=== PATIENT | male | born 1970 | race Caucasian/White ===

== ENCOUNTER 2017-11-03 14:45 | Observation (INO) | payer BC ==
--- NOTE | 2017-11-03 15:30 | RAD REPORT ---
EXAM DESCRIPTION: CT - Ct Stroke Brain Wo Cont - 11/03/2017 3:23 pm CLINICAL HISTORY: CVA/TIA COMPARISON: None. TECHNIQUE: All CT scans are performed using dose optimization technique as appropriate and may inclu de automated exposure control or mA/KV adjustment according to patient size. FINDINGS: No intracranial hemorrhage, hydrocephalus or extra-axial fluid collection.No areas of brai n edema or evidence of midline shift. The paranasal sinuses and mastoids are essentially clear. The calvarium is intact. IMPRESSION: No acute intracranial abnormality. The findings were discussed with ER physician Dr. Oropeza on 11/03/2017 at 3:26 p.m. by telephone.
[2017-11-03 15:36] LABS: Absolute Lymphocytes (CBC) 2.2 K/uL (0.7-4.9); Absolute Monocytes 0.7 K/uL (0.1-1.3); Absolute Neutrophil 3.9 K/uL (1.8-8.0); Basophils % 1.3 % (0-1.3); Eosinophils % 3.6 % (0-4.4); Lymphocytes % 30.8 % (15.3-44.8); MCH 31.9 pg (27.0-35.0); MCV 91.8 fL (80-100); MPV 8.8 fL (7.6-11.3); Monocytes % 9.9 % (3.3-12.3); RBC Red Blood Cell Count 5.12 M/uL (4.33-5.43)
--- NOTE | 2017-11-03 15:36 | RAD REPORT ---
EXAM DESCRIPTION: RAD - Chest Single View - 11/03/2017 3:30 pm CLINICAL HISTORY: CVA symptomology. COMPARISON: 11/26/2014 FINDINGS: Portable technique limits examination quality. The lungs are grossly clear. The heart is normal in size. No displaced fractures. IMPRESSION: No acute intrathoracic process suspected.
[2017-11-03 15:47] LABS: Potassium 3.8 mEq/L (3.6-5.0)
[2017-11-03 16:25] LABS: Protime INR 0.87
[2017-11-03] MEDS ORDERED: ASPIRIN 81 MG CHEWABLE TABLET ONE (16:43)
[2017-11-03] MEDS ORDERED: HYDROCODONE/APAP 5/325 MG TAB ONE ×2 (16:43→18:36)
[2017-11-03] MEDS ORDERED: NA CHLORIDE 0.9% 500 ML ONE (17:20)
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
[2017-11-03] MEDS ORDERED: ALBUTEROL 2.5 MG/3 ML NEB SOL NEB PRN (17:57)
[2017-11-03] MEDS ORDERED: HYDRALAZINE HCL 20 MG/ML VIAL IV PRN (17:57)
[2017-11-03] MEDS ORDERED: IPRATROPIUM BROM 0.5MG/2.5ML NEB PRN (17:57)
[2017-11-03] MEDS ORDERED: ONDANSETRON 4 MG/2 ML VIAL IV PRN (17:57)
[2017-11-03] MEDS ORDERED: ACETAMINOPHEN 500 MG TAB PO PRN (17:57)
[2017-11-03 18:03] LABS: Barbiturates NEGATIVE (NEGATIVE); Benzodiazepines NEGATIVE (NEGATIVE); Cocaine NEGATIVE (NEGATIVE); Opiates NEGATIVE (NEGATIVE); Phencyclidine NEGATIVE (NEGATIVE); THC Cannibis NEGATIVE (NEGATIVE)
[2017-11-03 18:05] LABS: METHAMPHETAM POSITIVE (NEGATIVE)
[2017-11-03 18:12] LABS: Urine Blood NEGATIVE (NEG); Urine Glucose NEGATIVE (NEG); Urine Protein NEGATIVE (NEG); Urine Specific Gravity >1.030 (1.005-1.030); Urine pH 5.5 (5.0-7.0)
[2017-11-03] MEDS: ATORVASTATIN 80 MG TAB PO SCH ×2 (19:00→22:12)
[2017-11-03] MEDS ORDERED: LORazepam 2 MG/ML VIAL ONE (19:19)
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
--- NOTE | 2017-11-03 20:34 | RAD REPORT ---
EXAM DESCRIPTION: MRI - Brain W/Wo Cont - 11/03/2017 8:17 pm CLINICAL HISTORY: CVA COMPARISON: CT head 11/03/2017 TECHNIQUE: Multi-sequence, multiplanar MR imaging of the brain was performed with contrast. FINDINGS: No acute hemorrhage, hydrocephalus or extra-axial collections seen. Small area of elevated diffusion-weighted signal is seen in the right basal ganglia along the course of the posterior limb of the right internal capsule measuring 9 mm. Additional 9-10 mm area of increa sed diffusion-weighted signal is seen in the right periventricular white matter. These areas demonstr ate reduced ADC signal compatible with acute CVA. No hemorrhagic component is present. No pathologic enhancement is seen following contrast administration. The midline structures are normally formed. No post-contrast enhancement worrisome for tumor or infec tion. IMPRESSION: Nonhemorrhagic small acute right-sided CVAs as detailed. Findings were discussed with Dr. Alcantara at 8:30 p.m. on 11/03/2017 by telephone.
--- NOTE | 2017-11-03 20:36 | RAD REPORT ---
EXAM DESCRIPTION: MRI - MRA Head Wo Cont - 11/03/2017 8:17 pm CLINICAL HISTORY: CVA COMPARISON: Brain MR same date FINDINGS: 3D noncontrast [id number] MRA of the robinson of [place] was performed. No aneurysm, high-grade stenosis or vascular malformation is seen. Atherosclerotic narrowing in both carotid siphons is present. Mildly right-sided dominant vertebral artery. IMPRESSION: No significant flow abnormality the robinson of [place] is identified.
[2017-11-03] MEDS ORDERED: LORazepam 2 MG/ML VIAL IV PRN (21:07)
[2017-11-03 21:32] VITALS: O2SAT 100
[2017-11-03 21:53] VITALS: BMI 46.4
[2017-11-03] MEDS: LISINOPRIL 20 MG TAB PO SCH (22:09)
[2017-11-03] MEDS: ENOXAPARIN 40 MG/0.4 ML SQ SCH (22:10)
[2017-11-03] MEDS: NA CHLORIDE 0.9% 1,000 ML IV SCH (22:52)
[2017-11-03] MEDS ORDERED: TRAMADOL HCL 50 MG TAB PO ONE (23:40)
[2017-11-04 02:02] LABS: CKMB Creatine Kinase MB 2.4 ng/ml (0.3-4.0)
[2017-11-04] MEDS: NA CHLORIDE 0.9% 1,000 ML IV SCH ×3 (04:00→14:00)
[2017-11-04 04:46] LABS: Absolute Lymphocytes (CBC) 2.4 K/uL (0.7-4.9); Absolute Monocytes 0.6 K/uL (0.1-1.3); Basophils % 0.9 % (0-1.3); Eosinophils % 4.1 % (0-4.4); Hematocrit 45.2 % (39.6-49.0); Lymphocytes % 38.6 % (15.3-44.8); MCH 31.9 pg (27.0-35.0); MCV 92.7 fL (80-100); Monocytes % 9.2 % (3.3-12.3); RBC Red Blood Cell Count 4.87 M/uL (4.33-5.43)
[2017-11-04 05:35] LABS: BUN Blood Urea Nitrogen 18 mg/dL (6-20); Bicarbonate 27 mEq/L (21-31); Glucose Level 100 mg/dL (65-120); HDL Cholesterol 52 mg/dL (27-67); LDL Cholesterol, Calculated 178 (<130); Potassium 4.2 mEq/L (3.6-5.0); Sodium Level 139 mEq/L (135-145); Thyroid Stimulating Hormone 1.55 uIU/mL (0.34-5.60)
--- NOTE | 2017-11-04 06:23 | EKG ---
Test Date: 2017-11-03 Test Time: 15:18:51 Pediatric Sports Medicine Specialist: JAZMÍN MEASUREMENT RESULTS: Intervals: Rate: 77 MA: 188 QRSD: 76 QT: 378 QTc: 427 Woody: P: -3 MA: 188 QRS: -2 T: 95 INTERPRETIVE STATEMENTS: Normal sinus rhythm Minimal voltage criteria for LVH, may be normal variant T wave abnormality, consider lateral ischemia Abnormal ECG Compared to ECG 11/26/2014 07:29:32 Left ventricular hypertrophy now present T-wave abnormality now present Possible ischemia now present Sinus bradycardia no longer present Electronically Signed On 11-04-17 06:22:29 CDT by Weston Morrissey
[2017-11-04] MEDS ORDERED: PANTOPRAZOLE 40MG TABLET PO SCH (07:30)
[2017-11-04] MEDS ORDERED: FOLIC ACID 1 MG TABLET PO SCH (09:00)
[2017-11-04] MEDS ORDERED: NICOTINE 21 MG/PAT TD SCH (09:00)
[2017-11-04] MEDS ORDERED: THIAMINE HCL 100 MG TABLET PO SCH (09:00)
[2017-11-04] MEDS: ENOXAPARIN 40 MG/0.4 ML SQ SCH (09:32)
[2017-11-04] MEDS: LISINOPRIL 20 MG TAB PO SCH (09:34)
[2017-11-04 09:43] LABS: CKMB Creatine Kinase MB 2.2 ng/ml (0.3-4.0)
--- NOTE | 2017-11-04 10:53 | RAD REPORT ---
EXAM DESCRIPTION: [facility] - CP - 11/04/2017 10:42 am CLINICAL HISTORY: CVA COMPARISON: MR brain 11/03/2017 TECHNIQUE: Real-time sonographic evaluation of both carotid systems was performed. Doppler interroga tion was performed with waveform tracing bilaterally. FINDINGS: Normal high resistance waveforms are noted in both external carotid arteries. The common c arotid arteries and internal carotid arteries show normal low resistance waveforms. Mild bilateral intimal thickening is noted. Peak systolic and end diastolic velocity values and the I CA/CCA ratios are in the non-hemodynamically significant range. Antegrade flow seen in both vertebral arteries. IMPRESSION: Bilateral intimal thickening is noted. No evidence of a hemodynamically significant stenosis.
--- NOTE | 2017-11-04 11:14 | P.PN ---
Subjective Date of Service: 11/04/17 Primary Care Provider: Dr. Honeycutt Chief Complaint: Left upper and lower extremity weakness Subjective: No new changes, Ambulating (Pt resists nicotine patch and wants to ambulate down to smoke. Discussed dangers of that and he consents to stay on the floor and will accept nicotine patch) Review of Systems Neurological: Numbness (left arm and leg, no worse, no significant improvement, denies weakness) Physical Examination - Vital Signs Temperature: 98.0 F Blood Pressure: 150/92 Pulse: 76 Respirations: 18 Pulse Ox (%): 98 - Physical Exam General: Alert, In no apparent distress, Oriented x3 HEENT: Atraumatic, Normocephalic Neck: Supple, 2+ carotid pulse no bruit Respiratory: Clear to auscultation bilaterally, Normal air movement Cardiovascular: No edema, Normal pulses Capillary refill: <2 Seconds Gastrointestinal: Normal bowel sounds, Soft and benign, Non-distended Musculoskeletal: No clubbing Integumentary: No rashes, Other (facial erythema, + ETOH daily) Neurological: Normal gait, Normal speech, Normal strength at 5/5 x4 extr, Abnormal sensation (left upper and lower extremities) Lymphatics: No axilla or inguinal lymphadenopathy External genitalia: Deferred Rectal: Deferred - Studies Laboratory Data (last 24 hrs) 11/03/17 15:10: PT 10.2, INR 0.87, APTT 28.3 11/03/17 15:10: WBC 7.2, Hgb 16.3, Hct 47.0, Plt Count 244 11/03/17 15:10: Sodium 138, Potassium 3.8, BUN 20, Creatinine 0.99, Glucose 101 11/03/17 15:10: B-Natriuretic Peptide 45 Assessment & Plan - Problems (Diagnosis) (1) Left-sided weakness Onset Date: 11/04/17 Current Visit: Yes Status: Acute Plan: Carotid doppler studies in progress. Will see Neurology today (2) Obstructive sleep apnea Onset Date: 11/04/17 Current Visit: Yes Status: Chronic Plan: Sleep study (3) Tobacco abuse Onset Date: 11/04/17 Current Visit: Yes Status: Chronic Plan: Nicoderm patch, smoking cessation information (4) Hyperlipidemia Onset Date: 10/03/14 Current Visit: No Status: Chronic Plan: consider statins Qualifiers: Hyperlipidemia type: unspecified Qualified Code(s): E78.5 - Hyperlipidemia , unspecified Plan to discharge in: 48 Hours - Code Status/Comfort Care Code Status Assessed: Yes Code Status: Full Code
--- NOTE | 2017-11-04 12:30 | ECHO ---
HEIGHT: 5 ft 8 in WEIGHT: 305 lb 3.2 oz DATE OF STUDY: 11/04/[address]: Devan Alcantara DO 2-DIMENSIONAL: YES M.MODE: YES DOPPLER: YES COLOR FLOW: YES TDS: PORTABLE: DEFINITY: BUBBLE STUDY: DIAGNOSIS: EVALUATE FOR CEREBRAL VASULAR ACCIDENT CARDIAC HISTORY: CATHERIZATION: NO SURGERY: NO PROSTHETIC VALVE: NO PACEMAKER: NO MEASUREMENTS (cm) DIASTOLIC (NORMALS) SYSTOLIC (NORMALS) IVSd 1.5 (0.6-1.2) LA Diam 3.8 (1.9-4.0) LVEF 73% LVIDd 3.5 (3.5-5.7) LVIDs 2.1 (2.0-3.5) %FS 41% LVPWd 1.2 (0.6-1.2) Ao Diam 3.5 (2.0-3.7) 2 DIMENSIONAL ASSESSMENT: RIGHT ATRIUM: NORMAL LEFT ATRIUM: NORMAL RIGHT VENTRICLE: NORMAL LEFT VENTRICLE: NORMAL TRICUSPID VALVE: NORMAL MITRAL VALVE: NORMAL PULMONIC VALVE: NORMAL AORTIC VALVE: NORMAL PERICARDIAL EFFUSION: NONE AORTIC ROOT: NORMAL LEFT VENTRICULAR WALL MOTION: NORMAL DOPPLER/COLOR FLOW: NORMAL COMMENTS: NORMAL TWO DIMENSIONAL ECHOCARDIOGRAM WITH DOPPLER. TECHNOLOGIST: YUSUF MEADE
--- NOTE | 2017-11-04 14:42 | P.DS ---
Admission Date: 11/03/17 Discharge Date: 11/04/17 Primary Care Provider: Dr. Honeycutt Disposition: ROUTINE DISCHARGE Discharge Condition: GOOD Reason for Admission: Left upper and lower extremity weakness - Problems (1) Left-sided weakness Onset Date: 11/04/17 Current Visit: Yes Status: Acute (2) Obstructive sleep apnea Onset Date: 11/04/17 Current Visit: No Status: Chronic (3) Tobacco abuse Onset Date: 11/04/17 Current Visit: Yes Status: Chronic (4) Hyperlipidemia Onset Date: 10/03/14 Current Visit: Yes Status: Chronic Qualifiers: Hyperlipidemia type: unspecified Qualified Code(s): E78.5 - Hyperlipidemia , unspecified Vital Signs/Physical Exam: Temp Pulse Resp BP Pulse Ox 97.2 F 65 18 130/90 97 11/04/17 12:00 11/04/17 12:00 11/04/17 12:00 11/04/17 12:00 11/04/17 12:00 General: Alert, In no apparent distress, Oriented x3 HEENT: Atraumatic Neck: Supple, 2+ carotid pulse no bruit Respiratory: Clear to auscultation bilaterally, Normal air movement Cardiovascular: No edema, Normal pulses Capillary refill: <2 Seconds Gastrointestinal: Normal bowel sounds, Soft and benign Musculoskeletal: No clubbing Integumentary: No rashes, No breakdown, Other (erythematous face) Neurological: Normal gait, Normal speech, Normal strength at 5/5 x4 extr, Other (left hand and lower ext numbness), Abnormal sensation Lymphatics: No axilla or inguinal lymphadenopathy External genitalia: Deferred Rectal: Deferred Laboratory Data at Discharge: WBC 6.3 K/uL (4.3-10.9) 11/04/17 03:38 Hgb 15.6 g/dL (13.6-17.9) 11/04/17 03:38 Hct 45.2 % (39.6-49.0) 11/04/17 03:38 Plt Count 227 K/uL (152-406) 11/04/17 03:38 PT 10.2 SECONDS (9.5-12.5) 11/03/17 15:10 INR 0.87 11/03/17 15:10 APTT 28.3 SECONDS (24.3-36.9) 11/03/17 15:10 Sodium 139 mEq/L (135-145) 11/04/17 03:38 Potassium 4.2 mEq/L (3.6-5.0) 11/04/17 03:38 BUN 18 mg/dL (6-20) 11/04/17 03:38 Creatinine 0.89 mg/dL (0.61-1.24) 11/04/17 03:38 Glucose 100 mg/dL (65-120) 11/04/17 03:38 Magnesium 2.0 mg/dL (1.8-2.5) 11/04/17 03:38 Troponin I < 0.03 ng/mL (<0.03) 11/04/17 09:08 B-Natriuretic Peptide 45 pg/ml (<=100) 11/03/17 15:10 Triglycerides 234 mg/dL (35-160) H 11/04/17 03:38 Cholesterol 277 mg/dL (<200) H 11/04/17 03:38 HDL Cholesterol 52 mg/dL (27-67) 11/04/17 03:38 Cholesterol/HDL Ratio 5.33 11/04/17 03:38 Home Medications: Aspirin Chewable [Aspirin Chewable*] 81 mg PO DAILY #90 tab.chew 11/04/17 Atorvastatin Calcium [Lipitor] 40 mg PO BEDTIME #90 tab 11/04/17 Dextroamphetamine/Amphetamine [Dextroamp-Amphetamin 20 mg Tab] 20 tab PO BID Hydrocodone/Acetaminophen [Hydrocodone-Acetamin 7.5-325] 7.5 - 325 mg PO Q6HP PRN 11/04/17 Lisinopril 20 mg PO DAILY 11/04/17 New Medications: Aspirin Chewable [Aspirin Chewable*] 81 mg PO DAILY #90 tab.chew Atorvastatin Calcium [Lipitor] 40 mg PO BEDTIME #90 tab Diet: AHA Activity: Ad jennifer Followup: Blake Morgan MD [ASSOCIATE-ACTIVE - CAN ADMIT] - (Follow up in 1 month, call to schedule an appointment)
[2017-11-04 15:55] VITALS: BP 145/83; TEMP 98.5
[2017-11-04] MEDS ORDERED: ASPIRIN EC 81 MG TAB PO SCH (19:00)
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
== END 2017-11-04 15:55 | disposition home or self-care (01) ==
LOC: ER 14:45 → INTOOBSV 17:40 → ERHOLD 17:40 → 4TH 21:09
PROVIDERS: ADMIT Family Medicine; ATTEND Family Medicine
DX: M62.81 Muscle weakness (generalized) (principal); R20.0 Anesthesia of skin; G47.33 Obstructive sleep apnea (adult) (pediatric); I10 Essential (primary) hypertension; E78.5 Hyperlipidemia, unspecified; F17.210 Nicotine dependence, cigarettes, uncomplicated; F10.10 Alcohol abuse, uncomplicated; F15.10 Other stimulant abuse, uncomplicated
CPT/HCPCS: 36415; 70450; 70544; 70553; 71045; 80048; 80061; 80307; 81003; 82550; 82553; 82962; 83735; 83880; 84439; 84443; 84484; 85025; 85610; 85730; 93005; 93306; 93880; 96361; 96374; 97163; 99285; A9577; G0378; J1650; J7030

== ENCOUNTER 2018-09-27 19:01 | Observation (INO) | payer BC ==
--- OUTSIDE RECORDS SUMMARY | 2018-09-27 19:03 | XMS REPORT ---
:1970 [facility] Address [address] [place] [address] Dr. Burns. [address] [place] [id number] Care Team Providers Name Role Phone Unavailable Unavailable Unavailable Problems This patient has no known problems. Allergies, Adverse Reactions, Alerts This patient has no known allergies or adverse reactions. Medications This patient has no known medications.
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
[2018-09-27] MEDS ORDERED: MORPHINE 4 MG/ML SYR ONE (20:25)
[2018-09-27] MEDS ORDERED: NITROGLYCERIN 0.4 MG/TAB SL ONE (20:25)
[2018-09-27] MEDS ORDERED: ASPIRIN EC 81 MG TAB PO ONE (20:25)
[2018-09-27] MEDS ORDERED: ONDANSETRON 4 MG/2 ML VIAL ONE (20:25)
[2018-09-27 20:28] LABS: Absolute Monocytes 0.7 K/uL (0.1-1.3); Absolute Neutrophil 3.7 K/uL (1.8-8.0); Basophils % 1.3 % (0-1.3); Eosinophils % 4.8 % (0-4.4); Hematocrit 42.5 % (39.6-49.0); Lymphocytes % 38.3 % (15.3-44.8); MPV 8.3 fL (7.6-11.3); Monocytes % 8.9 % (3.3-12.3); RBC Red Blood Cell Count 4.62 M/uL (4.33-5.43)
--- NOTE | 2018-09-27 20:36 | RAD REPORT ---
EXAM DESCRIPTION: RAD - Chest Single View - 09/27/2018 8:17 pm CLINICAL HISTORY: Chest pain COMPARISON: November 03, 2017 TECHNIQUE: AP portable chest image was obtained 2014 hour . FINDINGS: No acute lung parenchymal process seen. Lung markings are similar to comparison, accentuat ed by a slightly shallow inspiration. Heart and vasculature are normal. No measurable pleural effusio n and no pneumothorax. No acute bony abnormality seen. No acute aortic findings suspected. IMPRESSION: No acute cardiopulmonary process. No significant interval change.
[2018-09-27 20:52] LABS: ALT/SGPT 58 U/L (12-78); AST/SGOT 32 U/L (15-37); Albumin 3.8 g/dL (3.4-5.0); Alkaline Phosphatase 82 U/L (45-117); BUN Blood Urea Nitrogen 18 mg/dL (7-18); Bicarbonate 27 mmol/L (21-32); Bilirubin Direct 0.1 mg/dL (0-0.2); Bilirubin Total 0.6 mg/dL (0.2-1.0); Glucose Level 104 mg/dL (74-106); Magnesium 2.2 mg/dL (1.8-2.4); NT PRO-BNP 75 pg/mL (<125); Potassium 3.7 mmol/L (3.5-5.1); Protein, Total 7.2 g/dL (6.4-8.2); Sodium Level 140 mmol/L (136-145); Troponin (Emerg Dept Use Only) < 0.02 ng/mL (0.0-0.045)
[2018-09-27] MEDS ORDERED: ALPRAZOLAM 0.25 MG TABLET PO PRN (20:52)
[2018-09-27] MEDS ORDERED: ACETAMINOPHEN 500 MG TAB PO PRN (20:52)
[2018-09-27] MEDS ORDERED: CLOPIDOGREL 75 MG TABLET PO ONE (20:56)
[2018-09-27 20:58] LABS: Protime INR 0.85
[2018-09-27] MEDS ORDERED: ENOXAPARIN 100 MG/ML SYR SQ SCH (21:00)
[2018-09-27] MEDS ORDERED: ATORVASTATIN 80 MG TAB PO SCH (21:00)
[2018-09-27 22:51] LABS: Urine Blood NEGATIVE (NEG); Urine Glucose NEGATIVE (NEG); Urine Protein NEGATIVE (NEG); Urine pH 6.5 (5.0-7.0)
[2018-09-27 22:55] LABS: Barbiturates NEGATIVE (NEGATIVE); Benzodiazepines NEGATIVE (NEGATIVE); Cocaine NEGATIVE (NEGATIVE); METHAMPHETAM NEGATIVE (NEGATIVE); Methadone NEGATIVE (NEGATIVE); Opiates POSITIVE (NEGATIVE); Phencyclidine NEGATIVE (NEGATIVE); THC Cannibis NEGATIVE (NEGATIVE)
[2018-09-27] MEDS ORDERED: BENZONATATE 100 MG CAP PO PRN (23:11)
[2018-09-27] MEDS: METOPROLOL TAR 50 MG TAB PO SCH (23:14)
[2018-09-27 23:58] VITALS: BMI 42.4
[2018-09-28] MEDS ORDERED: GUAIFENESIN/CODEINE 5ML UCUP PO PRN (00:13)
[2018-09-28] MEDS: ENOXAPARIN 100 MG/ML SYR SQ SCH ×2 (00:34→08:03)
[2018-09-28] MEDS: MORPHINE 4 MG/ML SYR IV PRN ×2 (00:35→05:11)
[2018-09-28 05:10] LABS: Troponin I < 0.02 ng/mL (0.0-0.045)
[2018-09-28 05:16] LABS: Urine Appearance CLEAR; Urine Bilirubin NEGATIVE (NEG); Urine Blood NEGATIVE (NEG); Urine Color YELLOW; Urine Glucose NEGATIVE (NEG); Urine Protein NEGATIVE (NEG); Urine Specific Gravity 1.015 (1.005-1.030); Urine Urobilinogen 0.2 mg/dL (0.2-1.0)
[2018-09-28 05:34] LABS: Urine Microscopic Reflex NO UMIC
[2018-09-28 05:56] LABS: HDL Cholesterol 57 mg/dL (40-60); LDL Cholesterol, Calculated 113 (<130)
[2018-09-28] MEDS: METOPROLOL TAR 50 MG TAB PO SCH ×2 (08:04→15:58)
[2018-09-28] MEDS ORDERED: REGADENOSON 0.4 MG/5 ML SYR IV ONE (08:31)
[2018-09-28] MEDS ORDERED: CLOPIDOGREL 75 MG TABLET PO SCH (09:00)
[2018-09-28] MEDS ORDERED: ASPIRIN EC 81 MG TAB PO SCH (09:00)
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
--- NOTE | 2018-09-28 14:31 | RAD REPORT ---
EXAM DESCRIPTION: NM - Rest Stress Cardiac Imaging - 09/28/2018 2:24 pm CLINICAL HISTORY: Chest pain COMPARISON: September 2014 TECHNIQUE: The patient was administered approximately 10 mCi of Tc 99m Sestamibi prior to resting SP ECT imaging of the heart. The patient was then administered approximately 30 mCi of Tc 99m Sestamibi following exercise or pharmacologic stress. Multiplanar SPECT images were reviewed. FINDINGS: The end diastolic volume is 180 ml, the end systolic volume is 102 ml, and the ejection fr action is 43 %. Volumes and ejection fraction are not substantially different from the comparison. No stress-induced ischemic changes identifiable. No new areas of scarring from the 2015 study. IMPRESSION: No stress-induced ischemic change. End-diastolic volume is enlarged at 180 milliliters with 43% ejection fraction. These values are not significantly different from 2015. Overall, exam is not substantially different from 2015 comparison.
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
[2018-09-28 15:57] VITALS: O2SAT 95
[2018-09-28 16:03] VITALS: TEMP 98
--- NOTE | 2018-09-28 18:27 | EKG ---
Test Date: 2018-09-27 Test Time: 19:27:13 Service Dog Trainer: DIANA MEASUREMENT RESULTS: Intervals: Rate: 70 WA: 192 QRSD: 80 QT: 382 QTc: 412 [place]: P: 9 WA: 192 QRS: 2 T: 103 INTERPRETIVE STATEMENTS: Sinus rhythm with occasional premature ventricular complexes Nonspecific T wave abnormality Abnormal ECG Compared to ECG 11/03/2017 15:18:51 Ventricular premature complex(es) now present Left ventricular hypertrophy no longer present Possible ischemia no longer present T-wave abnormality still present Electronically Signed On 09-28-18 18:24:03 CDT by Kennedy Almeida
--- NOTE | 2018-09-28 19:05 | CON ---
Date of Consultation: 09/28/[address] patient admitted by Dr. Peoples's service on 09/27/2018. I saw the patient on 09/28/2018. Reason For Consultation: Chest pain. History Of Present Illness: Mr. Ho is a 48-year-old white male, has no significant past cardiac history. He does have a history of hypertension and dyslipidemia. Over the last few days has been having episodes of dizziness, shakiness, mid epigastric chest pain, nonradiating and not related to f ood, body position, time of the day. Under significant amount of stress lately. He denied PND, orth opnea, pedal edema, palpitations, or syncope. Allergies: HE IS ALLERGIC TO MULTIPLE MYCIN. Past Medical History: Includes hypertension and dyslipidemia. Review of Systems: Negative. Social History: Negative. Family History: Noncontributory. Medications: At home include aspirin, Lipitor, lisinopril, and metoprolol. Physical Examination: Vital Signs: He weighed 280 pounds. Blood pressure is 147/102. Vital signs were otherwise stable. He was in normal rhythm. HEENT: Negative. Neck: Supple, no bruit. Chest: Clear to auscultation and percussion. Cardiac: Revealed a regular rhythm and rate. No murmurs, gallops, or rubs. Abdomen: Benign. Extremities: Revealed no clubbing, cyanosis, or edema. Diagnostic Data: All normal. Impression And Plan: 1.Atypical chest pain, most likely gastric or esophageal in nature. 2.Dizziness and shakiness may be secondary to anxiety. 3.Hypertension poorly controlled. We can certainly increase the dose of metoprolol or lisinopril. 4.Dyslipidemia. An echocardiogram and stress test have been ordered already. We will see what thes e shows prior to making any final decisions. BERNARDINO/EDISON Voice ID: [id number] Report ID: [id number]
[2018-09-28 19:08] VITALS: BP 158/106
--- NOTE | 2018-09-29 08:45 | ECHO ---
HEIGHT: 5 ft 8 in WEIGHT: 279 lb 0 oz DATE OF STUDY: 09/28/[address]: Ileana Peoples MD 2-DIMENSIONAL: YES M.MODE: YES DOPPLER: YES COLOR FLOW: YES TDS: NO PORTABLE: NO DEFINITY: NO BUBBLE STUDY: NO DIAGNOSIS: CHEST PAIN, RULE OUT ACS CARDIAC HISTORY: CATHERIZATION: NO SURGERY: NO PROSTHETIC VALVE: NO PACEMAKER: NO MEASUREMENTS (cm) DIASTOLIC (NORMALS) SYSTOLIC (NORMALS) IVSd 1.2 (0.6-1.2) LA Diam 4.6 (1.9-4.0) LVEF 65% LVIDd 4.6 (3.5-5.7) LVIDs 3.0 (2.0-3.5) %FS 35% LVPWd 1.2 (0.6-1.2) Ao Diam 3.2 (2.0-3.7) 2 DIMENSIONAL ASSESSMENT: RIGHT ATRIUM: NORMAL LEFT ATRIUM: NORMAL RIGHT VENTRICLE: NORMAL LEFT VENTRICLE: NORMAL TRICUSPID VALVE: NORMAL MITRAL VALVE: NORMAL PULMONIC VALVE: NORMAL AORTIC VALVE: NORMAL PERICARDIAL EFFUSION: NONE AORTIC ROOT: NORMAL LEFT VENTRICULAR WALL MOTION: NORMAL DOPPLER/COLOR FLOW: NORMAL COMMENTS: MILD LEFT ATRIAL ENLARGEMENT. NORMAL WALL MOTION. NORMAL LEFT VENTRICULAR SIZE AND FUNCTION. NO EFFUSION. TECHNOLOGIST: Eleni GALVEZ
--- NOTE | 2018-09-29 08:52 | TREADPHA ---
DX: CHEST PAIN Date of Study: 09/28/2018 Ht: 5 8 Wt: 279 lb 0 oz Consulting Physician: VAISHNAVI MEDICATIONS: TYLENOL, XANAX, ASPIRIN, LIPITOR, PLAVIX, LOVENOX HISTORY: 48 YEAR OLD MALE WITH COMPLAINTS OF CHEST PAIN. MEDICAL HISTORY OF HYPERTENSION, ENLARGED HEART AND CURRENT SMOKER. PHYSICIAL EXAMINATION: RESTING B.P.: 165/116 RESTING H.R.: 55 RESTING EKG: SINUS RHYTHM, PREMATURE VENTRICULAR COMPLEXES. PROTOCOL: LEXISCAN EXERCISE TIME: 3:30 B.P. AT PEAK STRESS: 165/118 IMPRESSION: LEXISCAN INJECTED. CARDIOLITE INJECTED PER PROTOCOL. SEE NUCLEAR MEDICINE REPORT. NO SUPRAVENTRICULAR TACHYCARDIA. NO VENTRICULAR TACHYCARDIA. MULTIPLE PREMATURE VENTRICULAR COMPLEXES THOUGHOUT STRESS TEST. 6/10 CHEST PAIN ON PAIN SCALE THROUGHOUT PROCEDURE.
== END 2018-09-28 16:11 | disposition home or self-care (01) ==
LOC: ER 19:01 → ERHOLD 21:44 → 4TH 21:57
PROVIDERS: ADMIT Hospitalist; ATTEND Hospitalist
DX: R07.9 Chest pain, unspecified (principal); F10.10 Alcohol abuse, uncomplicated; E78.2 Mixed hyperlipidemia; I10 Essential (primary) hypertension; E66.9 Obesity, unspecified; Z68.41 Body mass index [BMI] 40.0-44.9, adult; G47.33 Obstructive sleep apnea (adult) (pediatric); F17.210 Nicotine dependence, cigarettes, uncomplicated; Z79.82 Long term (current) use of aspirin
CPT/HCPCS: 36415; 71045; 78452; 80048; 80061; 80076; 80307; 81003; 83735; 83880; 84484; 85025; 85379; 85610; 93005; 93017; 93306; 96374; 96375; 99285; A9500; G0378; J1650; J2405; J2785

== ENCOUNTER 2019-10-31 10:50 | Emergency (ER) | payer BC ==
[2019-10-31] MEDS ORDERED: PROMETHAZINE INJ 25 MG/ML AMP ONE (12:45)
[2019-10-31] MEDS ORDERED: MORPHINE 4 MG/ML SYR ONE (12:45)
[2019-10-31 13:03] LABS: Absolute Lymphocytes (CBC) 1.7 K/uL (0.7-4.9); Basophils % 1.5 % (0-1.3); Hematocrit 46.3 % (39.6-49.0); Lymphocytes % 23.8 % (15.3-44.8); MPV 8.7 fL (7.6-11.3); RBC Red Blood Cell Count 5.01 M/uL (4.33-5.43)
[2019-10-31 13:18] LABS: Protime INR 0.86
[2019-10-31 13:26] LABS: ALT/SGPT 60 U/L (12-78); AST/SGOT 35 U/L (15-37); Albumin 3.8 g/dL (3.4-5.0); Alkaline Phosphatase 72 U/L (45-117); BUN Blood Urea Nitrogen 16 mg/dL (7-18); Bicarbonate 25 mmol/L (21-32); Bilirubin Direct 0.2 mg/dL (0-0.2); Glucose Level 99 mg/dL (74-106); Magnesium 2.1 mg/dL (1.8-2.4); NT PRO-BNP 285 pg/mL (<125); Potassium 4.4 mmol/L (3.5-5.1); Protein, Total 7.8 g/dL (6.4-8.2); Sodium Level 137 mmol/L (136-145); Troponin (Emerg Dept Use Only) < 0.02 ng/mL (0.0-0.045)
--- NOTE | 2019-10-31 13:32 | RAD REPORT ---
EXAM DESCRIPTION: CT - Thorax Wo Con - 10/31/2019 1:03 pm CLINICAL HISTORY: Chest pain COMPARISON: 2014 TECHNIQUE: Computed axial tomography of the chest was obtained. Contrast was not requested. All CT scans are performed using dose optimization technique as appropriate and may include automated exposure control or mA/KV adjustment according to patient size. FINDINGS: The evaluation of mediastinum, vitaliy and vessels is limited secondary to lack of IV contras t administration. Nondisplaced fracture involves the third left anterolateral rib. Mildly displaced fracture involves t he fourth left anterolateral rib No pneumothorax. No pulmonary contusion Small left pleural effusion No mediastinal hematoma noted Small lucency within the left scapula with a sclerotic border probably benign Old right scapular fracture noted IMPRESSION: Fractures involving the third and fourth left ribs
--- OUTSIDE RECORDS SUMMARY | 2019-10-31 14:41 | XMS REPORT | Continuity of Care Document ---
:1970 Author Organization [facility] t Address [address] [place] [address] Care Team Providers Name Role Phone Yinka CLAUDIO Attending Clinician Doctor Unassigned, Name Attending Clinician Unavailable Problems This patient has no known problems. Allergies, Adverse Reactions, Alerts This patient has no known allergies or adverse reactions. Medications This patient has no known medications. Procedures This patient has no known procedures. Encounters Start End Encounter Admission Attending Care Care Encounter Source Date/Time Date/Time Type Type Clinicians Facility Department ID 2019-10-06 2019-10-06 Telemedici Yinka [facility] [id number] 07:08:57 07:23:57 ne Visit Nuno Wilson [id number] [place] [id number] Professio [phone] [address] 2019-09-12 2019-09-12 Refill Yinka [facility] [id number] 00:00:00 00:00:00 [facility] [id number] [place] [id number] Professio [phone] nal [facility] [address] 2019-09-06 2019-09-06 [facility] [id number] 00:00:00 00:00:00 [facility] [id number] [place] [id number] Professio [phone] [place] [address] [address] 2019-09-01 2019-09-01 Reftadeo Honeycutt [facility] [id number] 00:00:00 00:00:00 [facility] [id number] [place] [id number] Professio [phone] nal [facility] [address] [facility] 2019-08-15 2019-08-15 Joyce Honeycutt [facility] [id number] 00:00:00 00:00:00 [facility] [id number] [place] [id number] Professio [phone] [place] [address] 2019-07-19 2019-07-19 Joyce Honeycutt [facility] [id number] 00:00:00 00:00:00 [facility] [id number] [place] [id number] Professio [phone] nal [facility] 2019-07-14 2019-07-14 [facility] [id number] 00:00:00 00:00:00 [facility] [id number] [place] [id number] Professio [phone] nal [facility] [address] [facility] 2019-06-23 2019-06-23 Orders Doctor ANSELMO [id number] 00:00:00 00:00:00 Only Unassigned, FRANCK [id number] [facility] [phone] 2019-06-22 2019-06-22 [facility] [id number] 07:26:56 07:41:56 Visit [facility] [id number] [place] [id number] Professio [phone] [place] [address] [address] Results This patient has no known results.
--- OUTSIDE RECORDS SUMMARY | 2019-10-31 14:41 | XMS REPORT | Summary of Care ---
:1970 Author Organization [facility] Address [address] [place] [address] Care Team Providers Name Role Phone Nuno Honeycutt MD Primary Care Provider Reason for Visit Reason Comments Refill Request Encounter Details Date Type Department Care Team Description 09/01/2019 Refill [facility] Family Medicine Nuno Mercado MD Refill Request - [place] [address] [address] [place] [address] [place] [address] [phone] Allergies Active Allergy Reactions Severity Noted Date Comments Macrolide Antibiotics Unknown - See comments 7 documented as of this encounter (statuses as of 09/01/2019) Medications Medication Sig Dispensed Refills Start Date End Date Status TRAMADOL HCL Take by 0 Active (TRAMADOL ORAL) mouth. aspirin 81 mg EC TK 1 T PO QD 3 11/04/2017 Active tablet atorvastatin 40 mg TK 1 T PO 90 tablet 1 06/03/2018 Active tabletIndications: QHS Essential hypertension diclofenac 75 mg EC Take 1 120 tablet 1 06/03/2018 Active tabletIndications: tablet by Essential mouth 2 hypertension (two) times daily with meals. SERTraline 50 mg 1 TABLET BY 90 tablet 0 07/19/2019 Active tabletIndications: MOUTH DAILY Anxiety HYDROcodone-acetamin Take 1 120 tablet 0 08/16/2019 Active ophen 7.5-325 mg per tablet by tabletIndications: mouth every Other chronic pain 6 (six) hours as needed for Pain. dextroamphetamine-am Take 1 60 tablet 0 08/16/2019 Active phetamine 20 mg tablet by tabletIndications: mouth 2 Attention deficit (two) times disorder (ADD) daily. without hyperactivity LISINOPRIL 20 mg TAKE 1 90 tablet 0 09/01/2019 Ac tive tabletIndications: TABLET BY Essential MOUTH DAILY hypertension METOPROLOL SUCCINATE TAKE 1 30 tablet 5 09/01/2019 Active XL 50 mg 24 hr TABLET BY tabletIndications: MOUTH DAILY Essential hypertension metoprolol succinate Take 1 30 tablet 5 08/17/2018 09/01/19 20 Discontinued XL 50 mg 24 hr tablet by tabletIndications: mouth daily. Essential hypertension LISINOPRIL 20 mg TAKE 1 90 tablet 0 05/27/2019 09/01/2019 D iscontinued tabletIndications: TABLET BY Essential MOUTH DAILY hypertension documented as of this encounter (statuses as of 09/01/2019) Active Problems Problem Noted Date Morbid obesity 09/27/2018 Family history of [place] (myocardial infarction) 9 History of CVA (cerebrovascular accident) 09/27/2018 Anxiety 09/27/2018 Agitation 09/27/2018 Tobacco use disorder 09/27/2018 Attention deficit disorder (ADD) without hyperactivity 06/03/2018 Essential hypertension 06/03/2018 documented as of this encounter (statuses as of 09/01/2019) Resolved Problems Problem Noted Date Resolved Date Chest pain, unspecified type 09/27/2018 10/15/2018 Shakiness 09/27/2018 10/15/2018 Excessive sweating 09/27/2018 10/15/2018 documented as of this encounter (statuses as of 09/01/2019) Social History Tobacco Use Types Packs/Day Years Used Date Current Every Day Smoker Cigarettes 1 30 Smokeless Tobacco: Current User Snuff Alcohol Use Drinks/Week oz/Week Comments Yes 12 Cans of beer 12.0 Sex Assigned at Date Recorded Not on file Job Start Date Occupation Industry Not on file Not on file Not on file Travel History Travel Start Travel End No recent travel history available. documented as of this encounter Last Filed Vital Signs Not on filedocumented in this encounter Plan of Treatment Health Maintenance Due Date Last Done Comments PNEUMOCOCCAL 0-64 YEARS COMBINED SERIES (1 of - 1976 PPSV23) DTaP,Tdap,and Td Vaccines (1 - Tdap) 1981 INFLUENZA VACCINE (#1) 2019 documented as of this encounter Results Not on filedocumented in this encounter Visit Diagnoses Diagnosis Essential hypertension Unspecified essential hypertension documented in this encounter Insurance Payer Benefit Plan Subscriber ID Effective Dates Phone Address Type / Group BCBS [facility] [id number] 2018-Ash [phone] [address] PPO/POS [facility] [id number] [place] [address] documented as of this encounter
--- OUTSIDE RECORDS SUMMARY | 2019-10-31 14:41 | XMS REPORT | Summary of Care ---
:1970 Author Organization [facility] Address [address] [place] [address] Care Team Providers Name Role Phone Nuno Honeycutt MD Primary Care Provider Reason for Visit Reason Comments Refill Request Encounter Details Date Type Department Care Team Description 09/06/2019 Refill [facility] Family Medicine Nuno Mercado MD Refill Request - [place] [address] [address] [place] [address] [place] [address] [phone] Allergies Active Allergy Reactions Severity Noted Date Comments Macrolide Antibiotics Unknown - See comments 7 documented as of this encounter (statuses as of 09/06/2019) Medications Medication Sig Dispensed Refills Start Date End Date Status TRAMADOL HCL (TRAMADOL Take by mouth. 0 Active ORAL) aspirin 81 mg EC tablet TK 1 T PO QD 3 11/04/2017 Active atorvastatin 40 mg TK 1 T PO QHS 90 tablet 1 06/03/2018 Active tabletIndications: Essential hypertension diclofenac 75 mg EC Take 1 tablet by 120 tablet 1 06/03/2018 Active tabletIndications: mouth 2 (two) Essential hypertension times daily with meals. SERTraline 50 mg 1 TABLET BY 90 tablet 0 07/19/2019 Active tabletIndications: MOUTH DAILY Anxiety HYDROcodone-acetaminoph Take 1 tablet by 120 tablet 0 08/16/19 20 Active en 7.5-325 mg per mouth every 6 tabletIndications: (six) hours as Other chronic pain needed for Pain. dextroamphetamine-amphe Take 1 tablet by 60 tablet 0 0 Active tamine 20 mg mouth 2 (two) tabletIndications: times daily. Attention deficit disorder (ADD) without hyperactivity LISINOPRIL 20 mg TAKE 1 TABLET BY 90 tablet 0 09/01/2019 Active tabletIndications: MOUTH DAILY Essential hypertension METOPROLOL SUCCINATE XL TAKE 1 TABLET BY 30 tablet 5 0 Active 50 mg 24 hr MOUTH DAILY tabletIndications: Essential hypertension documented as of this encounter (statuses as of 09/06/2019) Active Problems Problem Noted Date Morbid obesity 09/27/2018 Family history of [place] (myocardial infarction) 9 History of CVA (cerebrovascular accident) 09/27/2018 Anxiety 09/27/2018 Agitation 09/27/2018 Tobacco use disorder 09/27/2018 Attention deficit disorder (ADD) without hyperactivity 06/03/2018 Essential hypertension 06/03/2018 documented as of this encounter (statuses as of 09/06/2019) Resolved Problems Problem Noted Date Resolved Date Chest pain, unspecified type 09/27/2018 10/15/2018 Shakiness 09/27/2018 10/15/2018 Excessive sweating 09/27/2018 10/15/2018 documented as of this encounter (statuses as of 09/06/2019) Social History Tobacco Use Types Packs/Day Years [...] Dates Phone Address Type / Group BCBS [facility] [id number] 2018-Ash [phone] [address] PPO/POS [place] [id number] [place] [address] documented as of this encounter
--- OUTSIDE RECORDS SUMMARY | 2019-10-31 14:41 | XMS REPORT | Summary of Care ---
:1970 Author Organization [facility] Address [address] [place] [address] Care Team Providers Name Role Phone Nuno Honeycutt MD Primary Care Provider Reason for Visit Reason Comments Refill Request Encounter Details Date Type Department Care Team Description 08/15/2019 Refill [facility] Family Medicine Nuno Mercado MD Refill Request - [place] [address] [place] [address] [place] [address] [phone] Allergies Active Allergy Reactions Severity Noted Date Comments Macrolide Antibiotics Unknown - See comments 7 documented as of this encounter (statuses as of 08/16/2019) Medications Medication Sig Dispensed Refills Start Date End Date Status TRAMADOL HCL Take by 0 Active (TRAMADOL ORAL) mouth. aspirin 81 mg EC TK 1 T PO 3 11/04/2017 Ac tive tablet QD atorvastatin 40 mg TK 1 T PO 90 tablet 1 06/03/2018 Active tabletIndications: QHS Essential hypertension diclofenac 75 mg EC Take 1 120 tablet 1 06/03/2018 Active tabletIndications: tablet by Essential mouth 2 hypertension (two) times daily with meals. metoprolol Take 1 30 tablet 5 08/17/2018 Active succinate XL 50 mg tablet by 24 hr mouth tabletIndications: daily. Essential hypertension LISINOPRIL 20 mg TAKE 1 90 tablet 0 05/27/2019 Ac tive tabletIndications: TABLET BY Essential MOUTH DAILY hypertension SERTraline 50 mg 1 TABLET BY 90 tablet 0 07/19/2019 Active tabletIndications: MOUTH DAILY Anxiety HYDROcodone-acetami Take 1 120 tablet 0 08/16/2019 Active nophen 7.5-325 mg tablet by per mouth every tabletIndications: 6 (six) Other chronic pain hours as needed for Pain. dextroamphetamine-a Take 1 60 tablet 0 08/16/2019 Active mphetamine 20 mg tablet by tabletIndications: mouth 2 Attention deficit (two) times disorder (ADD) daily. without hyperactivity dextroamphetamine-a Take 1 60 tablet 0 07/18/2019 Discontinued mphetamine 20 mg tablet by 0 (Re order) tabletIndications: mouth 2 Attention deficit (two) times disorder (ADD) daily. without hyperactivity HYDROcodone-acetami Take 1 120 tablet 0 07/18/2019 08/16/19 2 Discontinued nophen 7.5-325 mg tablet by 0 (R eorder) per mouth every tabletIndications: 6 (six) Other chronic pain hours as needed for Pain. documented as of this encounter (statuses as of 08/16/2019) Active Problems Problem Noted Date Morbid obesity 09/27/2018 Family history of [place] (myocardial infarction) 9 History of CVA (cerebrovascular accident) 09/27/2018 Anxiety 09/27/2018 Agitation 09/27/2018 Tobacco use disorder 09/27/2018 Attention deficit disorder (ADD) without hyperactivity 06/03/2018 Essential hypertension 06/03/2018 documented as of this encounter (statuses as of 08/16/2019) Resolved Problems Problem Noted Date Resolved Date Chest pain, unspecified type 09/27/2018 10/15/2018 Shakiness 09/27/2018 10/15/2018 Excessive sweating 09/27/2018 10/15/2018 documented as of this encounter (statuses as of 08/16/2019) Social History Tobacco Use Types Packs/Day Years [...] filedocumented in this encounter Plan of Treatment Date Type Specialty Care Team Description 09/21/2019 Office Visit Family Medicine Nuno Honeycutt MD [address] [place] [phone] Health Maintenance Due Date Last Done Comments PNEUMOCOCCAL 0-64 YEARS COMBINED SERIES (1 of 1 - 1976 PPSV23) DTaP,Tdap,and Td Vaccines (1 - Tdap) 1981 INFLUENZA VACCINE (#1) 2019 documented as of this encounter Results Not on filedocumented in this encounter Visit Diagnoses Diagnosis Other chronic pain Attention deficit disorder (ADD) without hyperactivity documented in this encounter Insurance Payer Benefit Plan Subscriber ID Effective Dates Phone Address Type / Group BCBS [facility] [id number] 2018-Ash [phone] [address] PPO/POS [place] t [id number] [place] [address] documented as of this encounter
--- OUTSIDE RECORDS SUMMARY | 2019-10-31 14:42 | XMS REPORT | Summary of Care ---
:1970 Author Organization [facility] - [facility] Address [address] [place] [id number] Care Team Providers Name Role Phone Nuno Honeycutt MD Primary Care Provider Reason for Visit Reason Comments Error Encounter Details Date Type Department Care Team Description 10/06/2019 Telemedicine Visit [facility] Nuno Honeycutt ERRON EOUS Pediatric and Adult ENCOUNTER--DISREGAR Primary Care- [address] ([address]) [address] [place], [place] , [address] [address] [place], [place] [phone] [id number] Allergies Active Allergy Reactions Severity Noted Date Comments Macrolide Antibiotics Unknown - See comments 7 documented as of this encounter (statuses as of 10/06/2019) Medications Medication Sig Dispensed Refills Start Date [...] 0 07/19/2019 Active tabletIndications: MOUTH DAILY Anxiety LISINOPRIL 20 mg TAKE 1 TABLET BY 90 tablet 0 09/01/2019 Active tabletIndications: MOUTH DAILY Essential hypertension METOPROLOL SUCCINATE XL TAKE 1 TABLET BY 30 tablet 5 0 Active 50 mg 24 hr MOUTH DAILY tabletIndications: Essential hypertension HYDROcodone-acetaminoph Take 1 tablet by 120 tablet 0 09/13/19 20 Active en 7.5-325 mg per mouth every 6 tabletIndications: (six) hours as Other chronic pain needed for Pain. dextroamphetamine-amphe Take 1 tablet by 60 tablet 0 0 Active tamine 20 mg mouth 2 (two) tabletIndications: times daily. Attention deficit disorder (ADD) without hyperactivity documented as of this encounter (statuses as of 10/06/2019) Active Problems Problem Noted Date Morbid obesity 09/27/2018 Family history of [place] (myocardial infarction) 9 History of CVA (cerebrovascular accident) 09/27/2018 Anxiety 09/27/2018 Agitation 09/27/2018 Tobacco use disorder 09/27/2018 Attention deficit disorder (ADD) without hyperactivity 06/03/2018 Essential hypertension 06/03/2018 documented as of this encounter (statuses as of 10/06/2019) Resolved Problems Problem Noted Date Resolved Date Chest pain, unspecified type 09/27/2018 10/15/2018 Shakiness 09/27/2018 10/15/2018 Excessive sweating 09/27/2018 10/15/2018 documented as of this encounter (statuses as of 10/06/2019) Social History Tobacco Use Types Packs/Day Years [...] Signs Not on filedocumented in this encounter Progress Notes Nuno Honeycutt MD - 10/06/2019 7:15 AM CDTPatient not answering after multiple calls. Left message to call back to reschedule. documented in this encounter Plan of Treatment Health Maintenance Due Date Last Done Comments PNEUMOCOCCAL 0-64 YEARS COMBINED SERIES (1 of - 1976 PPSV23) DTaP,Tdap,and Td Vaccines (1 - Tdap) 1981 INFLUENZA VACCINE (Season Ended) 2020 documented as of this encounter Results Not on filedocumented in this encounter Visit Diagnoses Diagnosis ERRONEOUS ENCOUNTER--DISREGARD - Primary documented in this encounter Insurance Payer Benefit Plan Subscriber ID Effective Dates Phone Address Type / Group BCBS [facility] [id number] 2018-Ash [phone] [address] PPO/POS [facility] [id number] [place] [address] documented as of this encounter
--- OUTSIDE RECORDS SUMMARY | 2019-10-31 14:42 | XMS REPORT | Summary of Care ---
:1970 Author Organization [facility] Address [address] [place] [address] Care Team Providers Name Role Phone Nuno Honeycutt MD Primary Care Provider Reason for Visit Reason Comments Refill Request Encounter Details Date Type Department Care Team Description 09/12/2019 Refill [facility] Family [facility] Nuno Mercado MD Refill Request - [address] [address] [place] [address] [place] [address] [phone] Allergies Active Allergy Reactions Severity Noted Date Comments Macrolide Antibiotics Unknown - See comments 7 documented as of this encounter (statuses as of 09/13/2019) Medications Medication Sig Dispensed Refills Start Date [...] DAILY Anxiety LISINOPRIL 20 mg TAKE 1 90 tablet 0 09/01/2019 Ac tive tabletIndications: TABLET BY Essential MOUTH DAILY hypertension METOPROLOL TAKE 1 30 tablet 5 09/01/2019 Active SUCCINATE XL 50 mg TABLET BY 24 hr MOUTH DAILY tabletIndications: Essential hypertension HYDROcodone-acetami Take 1 120 tablet 0 09/13/2019 Active nophen 7.5-325 mg tablet by per mouth every tabletIndications: 6 (six) Other chronic pain hours as needed for Pain. dextroamphetamine-a Take 1 60 tablet 0 09/13/2019 Active mphetamine 20 mg tablet by tabletIndications: mouth 2 Attention deficit (two) times disorder (ADD) daily. without hyperactivity HYDROcodone-acetami Take 1 120 tablet 0 08/16/2019 09/13/19 2 Discontinued nophen 7.5-325 mg tablet by 0 (R eorder) per mouth every tabletIndications: 6 (six) Other chronic pain hours as needed for Pain. dextroamphetamine-a Take 1 60 tablet 0 08/16/2019 Discontinued mphetamine 20 mg tablet by 0 (Re order) tabletIndications: mouth 2 Attention deficit (two) times disorder (ADD) daily. without hyperactivity documented as of this encounter (statuses as of 09/13/2019) Active Problems Problem Noted Date Morbid obesity 09/27/2018 Family history of [place] (myocardial infarction) 9 History of CVA (cerebrovascular accident) 09/27/2018 Anxiety 09/27/2018 Agitation 09/27/2018 Tobacco use disorder 09/27/2018 Attention deficit disorder (ADD) without hyperactivity 06/03/2018 Essential hypertension 06/03/2018 documented as of this encounter (statuses as of 09/13/2019) Resolved Problems Problem Noted Date Resolved Date Chest pain, unspecified type 09/27/2018 10/15/2018 Shakiness 09/27/2018 10/15/2018 Excessive sweating 09/27/2018 10/15/2018 documented as of this encounter (statuses as of 09/13/2019) Social History Tobacco Use Types Packs/Day Years [...] Treatment Date Type Specialty Care Team Description 10/06/2019 Telemedicine Visit Family Medicine Maegan Honeycutt MD [address] [place] [id number] Health Maintenance Due Date Last [...] Phone Address Type / Group BCBS OF [facility] [id number] 2018-Ash [phone] [address] PPO/POS [place] [id number] [place] [address] documented as of this encounter
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
[2019-10-31 15:30] VITALS: TEMP 98.5
[2019-10-31 15:32] VITALS: O2SAT 97
[2019-10-31 15:34] VITALS: BP 144/100
--- NOTE | 2019-11-01 06:36 | EKG ---
Test Date: 2019-10-31 Test Time: 13:14:56 Hammer Repairer: MAGO MEASUREMENT RESULTS: Intervals: Rate: 65 NH: 200 QRSD: 80 QT: 420 QTc: 436 [place]: P: 0 NH: 200 QRS: 0 T: 27 INTERPRETIVE STATEMENTS: Sinus rhythm with occasional premature ventricular complexes Otherwise normal ECG Compared to ECG 09/27/2018 19:27:13 T-wave abnormality no longer present Electronically Signed On 11-01-19 06:34:47 CDT by Kennedy Almeida
== END 2019-10-31 15:24 | disposition home or self-care (01) ==
LOC: ER 10:50
DX: S22.42XA Multiple fractures of ribs, left side, initial encounter for closed fracture (principal); W23.0XXA Caught, crushed, jammed, or pinched between moving objects, initial encounter; Y93.89 Activity, other specified; Y92.89 Other specified places as the place of occurrence of the external cause; Y99.8 Other external cause status; I10 Essential (primary) hypertension; F17.210 Nicotine dependence, cigarettes, uncomplicated; Z88.3 Allergy status to other anti-infective agents
CPT/HCPCS: 93005; 85025; 80048; 36415; 83735; 85610; 80076; 84484; 83880; 71250; 96375; 96374; 99284; J2550

== ENCOUNTER 2022-04-19 19:49 | Emergency (ER) | payer BC, SELFPAY ==
--- OUTSIDE RECORDS SUMMARY | 2022-04-19 19:53 | XMS REPORT | Continuity of Care Document ---
:1970 Author Organization [facility] t Address [address] [place] [address] Care Team Providers Name Role Phone Edwige Cunha MD Primary Care Physician Edwige Cunha MD Attending Clinician EDWIGE CUNHA Attending Clinician Unavailable Doctor Unassigned, [place] Attending Clinician Unavailable CHACHO PEREZ Attending Clinician Unavailable ALANA GARCIA Attending Clinician Unavailable JOHN DURAND Attending Clinician Unavailable Payers Payer Name Policy Type Policy Number Effective Date Expiration Date S jose alberto [facility] [id number] 2021 00:00:00 Problems Condition Condition Condition Status Onset Resolution Last Treating Co mments Source Name Details Category Date Date Treatment Clinician Date Morbid Morbid Disease Active Univers obesity obesity - ity of 00:00: [place] [facility] Family Family Disease Active Univers history of history of - it y of [place] 00:00: [place] (myocardia (myocardia 00 Me dical l l Branch infarction infarction ) ) History of History of Disease Active U nivers CVA CVA -06 ity of ([place]re[place] Medical accident) accident) Bran ch Anxiety Anxiety Disease Active Univers 5-06 ity of 00:00: [place] 00 Medical Branch Agitation Agitation Disease Active Uni vers - ity of 00:00: [place] 00 Medical Branch Tobacco Tobacco Disease Active Univers use use ity of disorder disorder 00:00: [place] 00 Medical Branch Attention Attention Disease Active Uni vers deficit deficit 1-10 ity of disorder disorder 00:00: [place] (ADD) (ADD) 00 Medical without without Branch hyperactiv hyperactiv ity ity Essential Essential Disease Active Uni vers hypertensi hypertensi 1-10 it y of on on 00:00: [place] 00 Medical Branch Allergies, Adverse Reactions, Alerts Allergy Allergy Status Severity Reaction(s) Onset Inactive Treating Comm ents Source Name Type Date Date Clinician Macrolid Propensi Active Unknown - 2016-05 Uni vers e ty to See comments 0-17 ity of Antibiot adverse 00:00: [place] ics reaction 00 Medical s Branch MACROLID Drug Active Unknown-Cmnt 2016-05 Un sheila E Class 0-17 ity of ANTIBIOT 00:00: [place] ICS 00 Medical Branch Macrolid Propensi Active Unknown - 2016-05 Uni vers e ty to See comments 0-17 ity of Antibiot adverse 00:00: [place] ics reaction 00 [facility] Social History Social Habit Start Date Stop Date Quantity Comments Source History of tobacco Snuff User Univer sity of use [facility] Alcohol intake 2020-04-05 2020-04-05 1.71 /d University of 00:00:00 00:00:00 [facility] Cigarettes smoked 2018-09-27 2018-09-27 Univers ity of current (pack per 00:00:00 00:00:00 ) - Reported Branch Cigarette 2018-09-27 2018-09-27 University of pack-years 00:00:00 00:00:00 [facility] Tobacco use and 2018-09-27 2018-09-27 Current user Univers ity of exposure 00:00:00 00:00:00 [facility] Sex [birth year] At [birth year] Universit y of 00:00:00 00:00:00 [facility] Smoking Status Start Date Stop Date Source Current every day smoker 2018-09-27 00:00:00 Uni versity of [facility] Medications Ordered Filled Start Stop Current Ordering Indication Dosage Frequency Signature Comments Components Source Medication Medication Date Date Medication? Clinician (SIG) Name Name HYDROcodone 2021- No 2745 1{tbl} Take 1 U nivers -acetaminop 5-17 05-25 tablet by it y of hen 7.5-325 00:00[place] 04[place] per 00 :00 every 6 Medical tablet (six) Branch hours as needed for Pain for up to 7 days. Indication s: chronic pain HYDROcodone 2021-0 2021- No 2745 1{tbl} Take 1 U nivers -acetaminop 5-17 05-25 tablet by it y of hen 7.5-325 00:00: 04:59 [place] mg per 00 :00 every 6 Medical tablet (six) Branch hours as needed for Pain for up to 7 days. Indication s: chronic pain dextroamphe 2022-0 Yes [id number] 20mg Take 1 Univers tamine-amph 4-26 tablet by ity of etamine 20 00:00: [place] tablet 00 (two) Medical times Branch daily. dextroamphe 2022-0 Yes [id number] 20mg Take 1 Univers tamine-amph 4-26 tablet by ity of etamine 20 00:00: [place] mg tablet 00 (two) Medical times Branch daily. dextroamphe 2022-0 Yes [id number] 20mg Take 1 Univers tamine-amph 4-26 tablet by ity of etamine 20 00:00: [place] mg tablet 00 (two) Medical times Branch daily. dextroamphe 2022-0 Yes [id number] 20mg Take 1 Univers tamine-amph 4-26 tablet by ity of etamine 20 00:00: [place] mg tablet 00 (two) Medical times Branch daily. dextroamphe 2022-0 Yes [id number] 20mg Take 1 Univers tamine-amph 4-26 tablet by ity of etamine 20 00:00: [place] mg tablet 00 (two) Medical times Branch daily. HYDROcodone 2021-0 2021- No 2745 1{tbl} Take 1 U nivers -acetaminop 4-14 04-22 tablet by it y of hen 7.5-325 00:00: 04:59 [place] mg per 00 :00 every 6 Medical tablet (six) Branch hours as needed for Pain for up to 7 days. Indication s: chronic pain dextroamphe 2022-0 Yes [id number] 20mg Take 1 Univers tamine-amph 3-23 tablet by ity of etamine 20 00:00: [place] mg tablet 00 (two) Medical times Branch daily. dextroamphe 2021-0 Yes [id number] 20mg Take 1 Univers tamine-amph 3-23 tablet by ity of etamine 20 00:00: [place] mg tablet 00 (two) Medical times Branch daily. dextroamphe 2021- No [id number] 20mg Take 1 Univers tamine-amph 3-23 - tablet by it y of etamine 20 00:00: 00:00 mouth 2 [place] as mg tablet 00 :00 (two) Medical times Branch daily. lisinopriL 0 Yes [id number] 40mg Take 2 U nivers 20 mg 2-15 tablets by ity of tablet 00:00: mouth 00 daily. Medical Branch atorvastati 0 Yes [id number] TK 1 T PO Univers n 40 mg 2-15 QHS ity of tablet 00:00: 00 Medical Branch lisinopriL 2021-0 Yes [id number] 40mg Take 2 U nivers 20 mg 2-15 tablets by ity of tablet 00:00: mouth 00 daily. Medical Branch atorvastati 0 Yes [id number] TK 1 T PO Univers n 40 mg 2-15 QHS ity of tablet 00:00: 00 Medical Branch lisinopriL 2021-0 Yes [id number] 40mg Take 2 U nivers 20 mg 2-15 tablets by ity of tablet 00:00: mouth 00 daily. Medical Branch atorvastati 2021-0 Yes [id number] TK 1 T PO Univers n 40 mg 2-15 QHS ity of tablet 00:00: [place] 00 Medical Branch lisinopriL 2021-0 Yes [id number] 40mg Take 2 U nivers 20 mg 2-15 tablets by ity of tablet 00:00: mouth 00 daily. Medical Branch atorvastati 0 Yes [id number] TK 1 T PO Univers n 40 mg 2-15 QHS ity of tablet 00:00: [place] 00 Medical Branch lisinopriL 2021-0 Yes [id number] 40mg Take 2 U nivers 20 mg 2-15 tablets by ity of tablet 00:00: mouth 00 daily. Medical Branch atorvastati 2022-0 Yes [id number] TK 1 T PO Univers n 40 mg 2-15 QHS ity of tablet 00:00: [place] 00 Medical Branch lisinopriL 2021-0 Yes [id number] 40mg Take 2 U nivers 20 mg 2-15 tablets by ity of tablet 00:00: mouth [place] 00 daily. Medical Branch atorvastati 2021-0 Yes [id number] TK 1 T PO Univers n 40 mg 2-15 QHS ity of tablet 00:00: [place] 00 Medical Branch lisinopriL 2021-0 Yes [id number] 40mg Take 2 U nivers 20 mg 2-15 tablets by ity of tablet 00:00: mouth [place] 00 daily. Medical Branch atorvastati 0 Yes [id number] TK 1 T PO Univers n 40 mg 2-15 QHS ity of tablet 00:00: [place] 00 Medical Branch dextroamphe 2021-0 2021- No [id number] 20mg Take 1 Univers tamine-amph 2-15 03-23 tablet by it y of etamine 20 00:00: 00:00 mouth 2 [place] as mg tablet 00 :00 (two) Medical times Branch daily. traMADoL 50 0 Yes [id number] 50mg Take 1 Univ ers mg tablet 2-10 tablet by ity o f 00:00: mouth [place] 00 every 6 Medical (six) Branch hours as needed for Pain (scale 4-6). Indication s: chronic pain traMADoL 50 2021-0 Yes [id number] 50mg Take 1 Univ ers mg tablet 2-10 tablet by ity o f 00:00: mouth [place] 00 every 6 Medical (six) Branch hours as needed for Pain (scale 4-6). Indication s: chronic pain traMADoL 50 2021-0 Yes [id number] 50mg Take 1 Univ ers mg tablet 2-10 tablet by ity o f 00:00: mouth [place] 00 every 6 Medical (six) Branch hours as needed for Pain (scale 4-6). Indication s: chronic pain traMADoL 50 2021-0 Yes [id number] 50mg Take 1 Univ ers mg tablet 2-10 tablet by ity o f 00:00: mouth [place] 00 every 6 Medical (six) Branch hours as needed for Pain (scale 4-6). Indication s: chronic pain traMADoL 50 2021-0 Yes [id number] 50mg Take 1 Univ ers mg tablet 2-10 tablet by ity o f 00:00: mouth [place] 00 every 6 Medical (six) Branch hours as needed for Pain (scale 4-6). Indication s: chronic pain traMADoL 50 2021-0 Yes [id number] 50mg Take 1 Univ ers mg tablet 2-10 tablet by ity o f 00:00: mouth 00 every 6 Medical (six) Branch hours as needed for Pain (scale 4-6). Indication s: chronic pain traMADoL 50 2021-0 Yes [id number] 50mg Take 1 Univ ers mg tablet 2-10 tablet by ity o f 00:00: mouth [place] 00 every 6 Medical (six) Branch hours as needed for Pain (scale 4-6). Indication s: chronic pain diclofenac 2018-0 Yes [id number] 75mg Take 1 U nivers 75 mg EC 1-10 tablet by ity of tablet 00:00: mouth (two) Medical times Branch daily with meals. diclofenac 2018-0 Yes [id number] 75mg Take 1 U nivers 75 mg EC 1-10 tablet by ity of tablet 00:00: mouth (two) Medical times Branch daily with meals. diclofenac 2018-0 Yes [id number] 75mg Take 1 U nivers 75 mg EC 1-10 tablet by ity of tablet 00:00: mouth (two) Medical times Branch daily with meals. diclofenac 2019-0 Yes [id number] 75mg Take 1 U nivers 75 mg EC 1-10 tablet by ity of tablet 00:00: mouth (two) Medical times Branch daily with meals. diclofenac 2018-0 Yes [id number] 75mg Take 1 U nivers 75 mg EC 1-10 tablet by ity of tablet 00:00: mouth (two) Medical times Branch daily with meals. diclofenac 2018-0 Yes [id number] 75mg Take 1 U nivers 75 mg EC 1-10 tablet by ity of tablet 00:00: mouth (two) Medical times Branch daily with meals. diclofenac 2019-0 Yes [id number] 75mg Take 1 U nivers 75 mg EC 1-10 tablet by ity of tablet 00:00: mouth (two) Medical times Branch daily with meals. aspirin 81 2018-0 Yes TK 1 T PO Un sheila mg EC 6-13 QD ity of tablet 00:00: Medical Branch aspirin 81 2018-0 Yes TK 1 T PO Un sheila mg EC 6-13 QD ity of tablet 00:00: Medical Branch aspirin 81 2018-0 Yes TK 1 T PO Un sheila mg EC 6-13 QD ity of tablet 00:00: Medical Branch aspirin 81 2018-0 Yes TK 1 T PO Un sheila mg EC 6-13 QD ity of tablet 00:00: Medical Branch aspirin 81 2018-0 Yes TK 1 T PO Un sheila mg EC 6-13 QD ity of tablet 00:00: Medical Branch aspirin 81 2018-0 Yes TK 1 T PO Un sheila mg EC 6-13 QD ity of tablet 00:00: Medical Branch aspirin 81 2018-0 Yes TK 1 T PO Un sheila mg EC 6-13 QD ity of tablet 00:00: [facility] Immunizations Ordered Filled Immunization Date Status Comments Sour e Immunization Name Name SARS-COV-2 COVID-19 2020-10-01 Completed Unive rsity of PFIZER VACCINE 00:00:00 [facility] SARS-COV-2 COVID-19 2020-10-01 Completed Unive rsity of PFIZER VACCINE 00:00:00 [facility] SARS-COV-2 COVID-19 2020-10-01 Completed Unive rsity of PFIZER VACCINE 00:00:00 [facility] SARS-COV-2 COVID-19 2020-10-01 Completed Unive rsity of PFIZER VACCINE 00:00:00 [facility] SARS-COV-2 COVID-19 2020-10-01 Completed Unive rsity of PFIZER VACCINE 00:00:00 [facility] SARS-COV-2 COVID-19 2020-10-01 Completed Unive rsity of PFIZER VACCINE 00:00:00 [facility] SARS-COV-2 COVID-19 2020-10-01 Completed Unive rsity of PFIZER VACCINE 00:00:00 [facility] SARS-COV-2 COVID-19 2020-09-08 Completed Unive rsity of PFIZER VACCINE 00:00:00 [facility] SARS-COV-2 COVID-19 2020-09-08 Completed Unive rsity of PFIZER VACCINE 00:00:00 [facility] SARS-COV-2 COVID-19 2020-09-08 Completed Unive rsity of PFIZER VACCINE 00:00:00 [facility] SARS-COV-2 COVID-19 2020-09-08 Completed Unive rsity of PFIZER VACCINE 00:00:00 [facility] SARS-COV-2 COVID-19 2020-09-08 Completed Unive rsity of PFIZER VACCINE 00:00:00 [facility] SARS-COV-2 COVID-19 2020-09-08 Completed Unive rsity of PFIZER VACCINE 00:00:00 [facility] SARS-COV-2 COVID-19 2020-09-08 Completed Unive rsity of PFIZER VACCINE 00:00:00 [facility] Procedures This patient has no known procedures. Encounters Start End Encounter Admission Attending Care Care Encounter Source Date/Time Date/Time Type Type Clinicians Facility Department ID 2021-11-12 2021-11-12 [facility] [id number] Univers 00:00:00 00:00:00 [place] [id number] it y of [place] [id number] Bernardo as RAFAEL?BLEA [phone] [address] MEDICAL OFFICE [facility] 2021-10-14 2021-10-14 Outpatient Zahraa CUNHA [facility] [id number] Univers 12:45:00 12:45:00 EDWIGE benita [facility] 2021-10-10 2021-10-10 [facility] [id number] Univers 00:00:00 00:00:00 (Out) [facility] [id number] it y of [place] [id number] Bernardo as RAFAEL?BLEA [phone] [address] MEDICAL OFFICE [facility] 2021-10-08 2021-10-08 Telephone [facility] [id number] Univers 00:00:00 00:00:00 [facility] [id number] it y of [place] [id number] Bernardo as RAFAEL?BLEA [phone] [address] MEDICAL OFFICE [facility] 2021-10-03 2021-10-03 Outpatient R ALPHONSE [facility] [id number] Univers 07:15:00 07:15:00 EDWIGE joy [facility] 2021-10-03 2021-10-03 Outpatient Zahraa CUNHA [facility] [id number] Univers 07:15:00 07:15:00 EDWIGE joy [facility] 2021-10-01 2021-10-01 Letter Alphonse [facility] [id number] Univers 00:00:00 00:00:00 (Out) Edwige HEALTH [id number] it y of [place] [id number] Bernardo as RAFAEL?BLEA [phone] [address] OFFICE [facility] 2021-09-17 2021-09-17 [facility] [id number] Univers 00:00:00 00:00:00 Edwige HEALTH [id number] it y of [place] [id number] Bernardo as RAFAEL?BLEA [phone] [address] MEDICAL OFFICE [facility] 2021-09-05 2021-09-05 Telephone [facility] [id number] Univers 00:00:00 00:00:00 Edwige HEALTH [id number] it y of [place] [id number] Bernardo as RAFAEL?BLEA [phone] [address] OFFICE [facility] 2021-08-14 2021-08-14 [facility] [id number] Univers 00:00:00 00:00:00 Edwige HEALTH [id number] it y of [place] [id number] Bernardo as RAFAEL?BLEA [phone] [address] OFFICE [facility] 2021-07-09 2021-07-09 Outpatient Zahraa CUNHA [facility] [id number] Univers 07:30:00 08:22:25 EDWIGE ity [facility] 2021-07-09 2021-07-09 Office [facility] [id number] Univers 07:30:00 08:22:25 Visit [facility] [id number] it y of [place] [id number] Bernardo as RAFAEL?BLEA [phone] [place] t[place] JE[address] MEDICAL OFFICE [facility] 2021-07-09 2021-07-09 Orders Doctor ANSELMO [id number] [id number] Univers 00:00:00 00:00:00 Only Unassigned, FRAN[place] [id number] ity of [place] [facility] [id number] Bernardo as [phone] [address] 2021-07-04 2021-07-04 Joyce Cunha [facility] 1.2.840.114 [id number] Univers 00:00:00 00:00:00 [facility] [id number] it y of [place] [id number] Bernardo as PROFESSIO [phone] [address] OFFICE [facility] ONE 2021-06-17 2021-06-17 Outpatient Zahraa PEREZ [facility] [id number] Univers 16:30:00 16:30:00 [facility] 2021-06-13 2021-06-13 [facility] [id number] Univers 00:00:00 00:00:00 [facility] [id number] [facility] [id number] Bernardo as RAFAEL?BLEA [phone] [address] MEDICAL OFFICE [facility] 2021-05-30 2021-05-30 Outpatient Zahraa CUNHA [facility] [id number] Univers 07:15:00 07:15:00 [facility] 2021-05-30 2021-05-30 Outpatient Zahraa CUNHA [facility] [id number] Univers 07:15:00 07:15:00 [facility] 2021-05-28 2021-05-28 [facility] [id number] Univers 00:00:00 00:00:00 [facility] [id number] it y of [place] [id number] Bernardo as PROFESSIO [phone] Va taylor MCLEAN [address] [place] [address] OFFICE [facility] ONE 2021-05-28 2021-05-28 Telephone [facility] [id number] Univers 00:00:00 00:00:00 Edwige HEALTH [id number] it y of [place] [id number] Bernardo as RAFAEL?BLEA [phone] [place] taylor ARMSTRONG [address] [place] [address] OFFICE [facility] 2021-05-07 2021-05-07 [facility] 1.2.840.114 [id number] Univers 00:00:00 00:00:00 Edwige HEALTH [id number] it y of [place] [id number] Bernardo as RAFAEL?BLEA [phone] [place] t[place] ARMSTRONG [address] [place] [address] OFFICE [facility] 2021-04-25 2021-04-25 [facility] [id number] Univers 00:00:00 00:00:00 Edwige HEALTH [id number] it y of [place] [id number] Bernardo as RAFAEL?BLEA [phone] [place] JE[address] OFFICE [facility] 2021-04-05 2021-04-05 [facility] [id number] [id number] Univers 00:00:00 00:00:00 Edwige HEALTH [id number] it y of [place] [id number] Bernardo as RAFAEL?BLEA [phone] [place] t[place] ARMSTRONG [address] [place] [address] OFFICE [facility] 2021-03-25 2021-03-25 [facility] [id number] Univers 00:00:00 00:00:00 Edwige HEALTH [id number] it y of [place] [id number] Bernardo as RAFAEL?BLEA [phone] [facility] [address] OFFICE [facility] 2021-03-15 2021-03-15 Outpatient Zahraa GARCIA [facility] [id number] Univers 08:30:00 08:30:00 ALAAN itellie [facility] 2021-03-06 2021-03-06 [facility] [id number] [id number] Univers 00:00:00 00:00:00 [facility] [id number] it y of [place] [id number] Bernardo as Rafael?Blea [phone] [facility] [address] Medical Office Building 2021-02-28 2021-02-28 Office [facility] [id number] [id number] Univers 07:19:15 07:34:15 Visit [facility] [id number] it y of [place] [id number] Bernardo as Rafael?Blea [phone] [address] Office [facility] 2021-02-28 2021-02-28 Outpatient Zahraa CUNHA [facility] [id number] Univers 07:30:00 07:30:00 EDWIGE [facility] 2021-02-04 2021-02-04 Telephone [facility] [id number] Univers 00:00:00 00:00:00 [facility] [id number] it y of [place] [id number] Bernardo as PROFESSIO [phone] [address] OFFICE [facility] ONE 2020-12-05 2020-12-05 Outpatient Zahraa CUNHA [facility] [id number] Univers 10:00:00 10:00:00 EDWIGE [facility] 2020-10-11 2020-10-11 Outpatient Zahraa CUNHA [facility] [id number] Univers 09:00:00 09:00:00 EDWIGE ellie [facility] 2020-10-01 2020-10-01 Outpatient Zahraa DURAND [facility] [id number] Univers 09:20:00 08:12:36 [facility] 2020-09-29 2020-09-29 Outpatient [facility] [id number] Univers 09:15:00 09:15:00 ity [facility] 2020-09-08 2020-09-08 Outpatient Zahraa DURAND, [facility] [id number] Univers 09:05:00 09:09:48 JOHN benita [facility] 2020-09-08 2020-09-08 Outpatient [facility] [id number] Univers 09:05:00 09:05:00 itellie [facility] 2020-07-16 2020-07-16 Outpatient Zahraa CUNHA [facility] [id number] Univers 09:00:00 09:00:00 EDWIGE itellie [facility] 2020-07-09 2020-07-09 Outpatient Zahraa CUNHA [facility] [id number] Univers 07:00:00 07:00:00 EDWIGE ity [facility] 2020-04-05 2020-04-05 Outpatient Zahraa CUNHA [facility] [id number] Univers 09:15:00 09:15:00 EDWIGE ity [facility] 2020-01-05 2020-01-05 Outpatient Zahraa CUNHA [facility] [id number] Univers 11:00:00 11:00:00 EDWIGE ity [facility] 2019-10-06 2019-10-06 Telemedici [facility] [id number] 07:08:57 07:23:57 ne Visit Edwige [place] [id number] [place] [id number] Professio [phone] nal 044 Building 2019-10-06 2019-10-06 Outpatient Zahraa CUNHA [facility] [id number] Univers 07:20:00 07:20:00 EDWIGE joy [facility] 2019-09-21 2019-09-21 Outpatient Zahraa CUNHA [facility] [id number] Univers 07:00:00 07:00:00 EDWIGE ellie [facility] 2019-09-12 2019-09-12 Joyce Cunha [facility] 1.2.840.114 [id number] 00:00:00 00:00:00 Edwige [facility] [id number] [place] [id number] Professio [phone] nal 044 Office Building One 2019-09-06 2019-09-06 Joyce Cunha [facility] 1.2.840.114 [id number] 00:00:00 00:00:00 [facility] [id number] [place] [id number] Professio [phone] [place] [address] Office Building One 2019-09-01 2019-09-01 Joyce Cunha [facility] 1.2.840.114 [id number] 00:00:00 00:00:00 [facility] [id number] [place] [id number] Professio [phone] [place] [address] Office Building One 2019-08-15 2019-08-15 Joyce Cunha [facility] 1.2.840.114 [id number] 00:00:00 00:00:00 Ed[facility] [id number] [place] [id number] Professio [phone] [place] [address] Office Building One 2019-07-19 2019-07-19 [facility] [id number] [id number] 00:00:00 00:00:00 [facility] [id number] [place] [id number] Professio [phone] [place]athan [place] [id number] [address] 2019-07-14 2019-07-14 Joyce Cunha [facility] [id number] 00:00:00 00:00:00 [facility] [id number] [place] [id number] Professio [phone] [place] [id number] [address] 2019-06-23 2019-06-23 Orders Doctor ANSELMO [id number] 00:00:00 00:00:00 Only Unassigned, FRAN[place] [id number] [place] [facility] [phone] [id number] 2019-06-22 2019-06-22 Office Alphonse [facility] [id number] 07:26:56 07:41:56 Visit [facility] [id number] [place] [id number] Professio [phone] [place] [address] Results This patient has no known results.
[2022-04-19] MEDS ORDERED: CETIRIZINE HCL 5 MG TABLET ONE (20:43)
[2022-04-19] MEDS ORDERED: lisinopriL 10 MG TAB ONE (20:43)
[2022-04-19] MEDS ORDERED: FAMOTIDINE 20 MG TAB ONE (20:44)
[2022-04-19 21:41] LABS: SARS-COV-2 RT PCR NEGATIVE (NEGATIVE)
--- NOTE | 2022-04-19 21:51 | RAD REPORT ---
EXAM DESCRIPTION: RAD - Chest Pa And Lat (2 Views) - 04/19/2022 9:32 pm CLINICAL HISTORY: COUGH COMPARISON: Chest Single View dated 09/27/2018; Chest Single View dated 11/03/2017; CHEST SINGLE VIEW d ated 11/26/2014; CHEST SINGLE VIEW dated 10/02/2014Chest Single View dated 09/27/2018; Chest Single View d ated 11/03/2017; CHEST SINGLE VIEW dated 11/26/2014; CHEST SINGLE VIEW dated 10/02/2014 FINDINGS: Lines: None. Lungs: No evidence of edema or pneumonia. Pleural: No significant pleural effusions or pneumothorax. Cardiac: Mild cardiomegaly. Mediastinum: Within normal limits. Bones: No acute fractures. Other: None IMPRESSION: No acute cardiopulmonary disease.
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
[2022-04-19] MEDS ORDERED: HYDROCODONE/CHLORPHEN 5 ML/OSYR ONE (22:00)
[2022-04-19] MEDS ORDERED: dexAMETHasone 10 MG/ML VIAL ONE (22:01)
[2022-04-19 22:12] VITALS: O2SAT 94
[2022-04-19 22:14] VITALS: BP 170/89; TEMP 99.2
== END 2022-04-19 22:08 | disposition home or self-care (01) ==
LOC: ER 19:49
DX: J44.1 Chronic obstructive pulmonary disease with (acute) exacerbation (principal); M79.10 Myalgia, unspecified site; H11.31 Conjunctival hemorrhage, right eye; Z20.822 Contact with and (suspected) exposure to COVID-19; I10 Essential (primary) hypertension; F17.210 Nicotine dependence, cigarettes, uncomplicated
CPT/HCPCS: 0241U; 71046; 96372; 99283; J1100

== ENCOUNTER 2022-05-06 14:51 | Emergency (ER) | payer SELFPAY ==
[2022-05-06] MEDS ORDERED: KETOROLAC 30 MG/ML INJ ONE (15:04)
--- OUTSIDE RECORDS SUMMARY | 2022-05-06 15:04 | XMS REPORT | Continuity of Care Document ---
:1970 Author Organization [facility] t Address [facility] [place] [address] Care Team Providers Name Role Phone Edwige Cunha MD Primary Care Physician Edwige Cunha MD Attending Clinician EDWIGE CUNHA Attending Clinician Unavailable Doctor Unassigned, Roby Attending Clinician Unavailable CHACHO PEREZ Attending Clinician Unavailable ALANA GARCIA Attending Clinician Unavailable JOHN DURAND Attending Clinician Unavailable Payers Payer Name Policy Type Policy Number Effective Date Expiration Date S [facility] [id number] 2021 00:00:00 Problems Condition Condition Condition Status Onset Resolution Last Treating Co mments Source Name Details Category Date Date Treatment Clinician Date Morbid Morbid Disease Active Univers obesity obesity 5-06 ity of 00:00: [address] Branch Family Family Disease Active Univers history of history of 5-06 [place] of [place] 00[place]: [place] (myocardia (myocardia 00 Me dical l l Branch infarction infarction ) ) History of History of Disease Active U nivers CVA CVA 5-06 ity of [place] Medical accident[place] accident) Bran ch Anxiety Anxiety Disease Active 2018- Univers 5-06 ity of 00:00: [address] Branch Agitation Agitation Disease Active Uni vers 5-06 ity of 00:00: [place] 00 [facility] Branch Tobacco Tobacco Disease Active Univers use use 5-06 ity of disorder disorder 00:00: [place] [address] Medical Branch Attention Attention Disease Active Uni vers deficit deficit 1-10 ity of disorder disorder 00:00: [place] (ADD) (ADD) 00 Medical without without Branch [...] Antibiot adverse 00:00: [place] ics reaction 00 [facility] s Branch Social History Social Habit Start Date Stop Date Quantity Comments Source History of tobacco Snuff User Univer sity of use [facility] Alcohol intake 2020-04-05 2020-04-05 1.71 /d University of 00:00:00 00:00:00 [facility] Cigarettes smoked 2018-09-27 2018-09-27 Univers ity of current (pack per 00:00:00 00:00:00 ) - Reported Branch Cigarette 2018-09-27 2018-09-27 University of pack-years 00:00:00 00:00:00 [facility] Tobacco use and 2018-09-27 2018-09-27 Current user Univers ity of exposure 00:00:00 00:00:00 [facility] Sex Ass[birth year] At [birth year] Universit y of 00:00:00 00:00:00 [facility] Smoking Status Start Date Stop Date Source Current every day smoker 2018-09-27 00:00:00 Uni versity of [facility] Medications Ordered Filled Start Stop Current Ordering [...] Indication s: chronic pain dextroamphe 2022-0 Yes [id number] 20mg Take 1 Univers tamine-amph 4-26 tablet by ity of etamine 20 [place] (two) Medical times Branch daily. dextroamphe 2022-0 Yes [id number] 20mg Take 1 Univers tamine-amph 4-26 tablet by ity of etamine 20 [place] 00 (two) Medical times Branch daily. dextroamphe 2022-0 Yes [id number] 20mg Take 1 Univers tamine-amph 4-26 tablet by ity of etamine 20 [place] 00 (two) Medical times Branch daily. dextroamphe 2022-0 Yes [id number] 20mg Take 1 Univers tamine-amph 4-26 tablet by ity of etamine 20 [place] tablet 00 (two) Medical times Branch daily. dextroamphe 2022-0 Yes [id number] 20mg Take 1 Univers tamine-amph 4-26 tablet [...] Indication s: chronic pain dextroamphe 2022-0 Yes [id number] 20mg Take 1 Univers tamine-amph 3-23 tablet by ity of etamine 20 [place] tablet 00 (two) Medical times Branch daily. dextroamphe 2021-0 Yes [id number] 20mg Take 1 Univers tamine-amph 3-23 tablet by ity of etamine 20 [place]:00[place] tablet 00 (two) Medical times Branch daily. dextroamphe 2021- No [id number] 20mg Take 1 Univers tamine-amph 3-23 04-26 tablet by it y of etamine 20 00:00: 00:00 mouth 2 Bernardo as mg tablet 00 :00 (two) Medical times Branch daily. lisinopriL 0 Yes [id number] 40mg Take 2 U nivers 20 mg 2-15 tablets by ity of tablet 00:00: mouth [place] 00 daily. Medical Branch atorvastati 0 Yes [id number] TK 1 T PO Univers n 40 mg 2-15 QHS ity of tablet 00:00: [place] 00 Medical Branch lisinopriL 2021-0 Yes [id number] 40mg Take 2 U nivers 20 mg 2-15 tablets by ity of tablet 00:00: mouth [place] 00 daily. Medical Branch atorvastati 0 Yes [id number] TK 1 T PO Univers n 40 mg 2-15 QHS ity of tablet 00:00: [place] 00 Medical Branch lisinopriL 2021-0 Yes [id number] 40mg Take 2 U nivers 20 mg 2-15 tablets by ity of tablet 00:00: mouth 00 daily. Medical Branch atorvastati 2021-0 Yes [id number] TK 1 T PO Univers n 40 mg 2-15 QHS ity of tablet 00:00: [place] 00 Medical Branch lisinopriL 2021-0 Yes [id number] 40mg Take 2 U nivers 20 mg 2-15 tablets by ity of tablet 00:00: mouth [place] 00 daily. Medical Branch atorvastati 2021-0 Yes [id number] TK 1 T PO Univers n 40 mg 2-15 QHS ity of tablet 00:00: [place] 00 Medical Branch lisinopriL 2021-0 Yes [id number] 40mg Take 2 U nivers 20 mg 2-15 tablets by ity of tablet 00:00: mouth [place] 00 daily. Medical Branch atorvastati 2021-0 Yes [id number] TK 1 T PO Univers n 40 mg 2-15 QHS ity of tablet 00:00: [place] 00 Medical Branch lisinopriL 2021-0 Yes [id number] 40mg Take 2 U nivers 20 mg 2-15 tablets by ity of tablet 00:00: mouth [place] 00 daily. Medical Branch atorvastati 2021-0 Yes [id number] TK 1 T PO Univers n 40 mg 2-15 QHS ity of tablet 00:00: [place] 00 Medical Branch lisinopriL 2021-0 Yes [id number] 40mg Take 2 U nivers 20 mg 2-15 tablets by ity of tablet 00:00: mouth [place] 00 daily. Medical Branch atorvastati 0 Yes [id number] TK 1 T PO Univers n 40 mg 2-15 QHS ity of tablet 00:00: [place] 00 Medical Branch dextroamphe 0 2021- No [id number] 20mg Take 1 Univers tamine-amph 2-15 03-23 [...] 4-6). Indication s: chronic pain traMADoL 50 0 Yes [id number] 50mg Take [...] (scale 4-6). Indication s: chronic pain diclofenac 2018- Yes [id number] 75mg Take 1 U nivers 75 mg EC 1-10 tablet by ity of tablet 00:00: mouth (two) Medical times Branch daily with meals. diclofenac 0 Yes [id number] 75mg Take 1 U nivers 75 mg EC 1-10 tablet by ity of tablet 00:00: mouth (two) Medical times Branch daily with meals. diclofenac 2018-0 Yes [id number] 75mg Take 1 U nivers 75 mg EC 1-10 tablet by ity of tablet 00:00: mouth (two) Medical times Branch daily with meals. diclofenac 2019-0 Yes [id number] 75mg Take 1 U nivers 75 mg EC 1-10 tablet by ity of tablet 00:00: mouth (two) Medical times Branch daily with meals. diclofenac 2018-0 Yes [id number] 75mg Take 1 U nivers 75 mg EC 1-10 tablet by ity of tablet 00:00: mouth (two) Medical times Branch daily with meals. diclofenac 2018-0 Yes [id number] 75mg Take 1 U nivers 75 mg EC 1-10 tablet by ity of tablet 00:00: mouth (two) Medical times Branch daily with meals. diclofenac 2018-0 Yes [id number] 75mg Take 1 U nivers 75 mg EC 1-10 tablet by ity of tablet 00:00: mouth (two) Medical times Branch daily with meals. aspirin 81 2018-0 Yes TK 1 T PO Un sheila mg EC 6-13 QD ity of tablet 00:00: Medical Branch aspirin 81 2018-0 Yes TK 1 T PO Un sheila mg EC 6-13 QD ity of tablet 00:00: 00 Medical Branch aspirin 81 2018-0 Yes TK [...] EC 6-13 QD ity of tablet 00:00: [facility] Immunizations Ordered Filled Immunization Date Status Comments [facility] e Immunization Name Name SARS-COV-2 COVID-19 2020-10-01 Completed Unive rsity of PFIZER VACCINE 00:00:00 [facility] SARS-COV-2 COVID-19 2020-10-01 Completed Unive rsity of PFIZER VACCINE 00:00:00 [facility] SARS-COV-2 COVID-19 2020-10-01 Completed Unive rsity of PFIZER VACCINE 00:00:00 [facility] SARS-COV-2 COVID-19 2020-10-01 Completed Unive rsity of PFIZER VACCINE 00:00:00 [facility] SARS-COV-2 COVID-19 2020-10-01 Completed Unive rsity of PFIZER VACCINE 00:00:00 [facility] SARS-COV-2 COVID-19 2020-10-01 Completed Unive rsity of PFIZER VACCINE 00:00:00 [facility] SARS-COV-2 COVID-19 2020-10-01 Completed Unive rsity of PFIZER VACCINE 00:00:00 [facility] SARS-COV-2 COVID-19 2020-09-08 Completed Unive rsity of PFIZER VACCINE 00:00:00 [facility] SARS-COV-2 COVID-19 2020-09-08 Completed Unive rsity of PFIZER VACCINE 00:00:00 [facility] SARS-COV-2 COVID-19 2020-09-08 Completed Unive rsity of PFIZER VACCINE 00:00:00 [facility] SARS-COV-2 COVID-19 2020-09-08 Completed Unive rsity of PFIZER VACCINE 00:00:00 [facility] SARS-COV-2 COVID-19 2020-09-08 Completed Unive rsity of PFIZER VACCINE 00:00:00 [facility] SARS-COV-2 COVID-19 2020-09-08 Completed Unive rsity of PFIZER VACCINE 00:00:00 [facility] SARS-COV-2 COVID-19 2020-09-08 Completed Unive rsity of PFIZER VACCINE 00:00:00 [facility] Procedures This patient has no known procedures. Encounters Start End Encounter Admission Attending Care Care Encounter Source Date/Time Date/Time Type Type Clinicians Facility Department ID 2021-11-12 2021-11-12 [facility] [id number] Univers 00:00:00 00:00:00 [facility] [id number] it y of [place] [id number] Bernardo as RAFAEL?BLEA [phone] [address] MEDICAL OFFICE [facility] 2021-10-14 2021-10-14 [id number] Univers 12:45:00 12:45:00 EDWIGE joy [facility] 2021-10-10 2021-10-10 Letter [facility] [id number] Univers 00:00:00 00:00:00 (Out) [facility] [id number] it y of [place] [id number] Bernardo as RAFAEL?BLEA [phone] [address] MEDICAL OFFICE [facility] 2021-10-08 2021-10-08 Telephone [facility] [id number] Univers 00:00:00 00:00:00 [facility] [id number] [facility] [id number] Bernardo as RAFAEL?BLEA [phone] [address] MEDICAL OFFICE [facility] 2021-10-03 2021-10-03 Outpatient [facility] [id number] Univers 07:15:00 07:15:00 EDWIGE ity [facility] 2021-10-03 2021-10-03 Outpatient R ALPHONSE [facility] [id number] Univers 07:15:00 07:15:00 EDWIGE joy [facility] 2021-10-01 2021-10-01 Letter [facility] [id number] Univers 00:00:00 00:00:00 (Out) [facility] [id number] it y of [place] [id number] Bernardo as RAFAEL?BLEA [phone] [address] OFFICE [facility] 2021-09-17 2021-09-17 [facility] [id number] [id number] Univers 00:00:00 00:00:00 [facility] [id number] it y of [place] [id number] Bernardo as RAFAEL?BLEA [phone] [address] MEDICAL OFFICE [facility] 2021-09-05 2021-09-05 Telephone [facility] [id number] Univers 00:00:00 00:00:00 [facility] [id number] it y of [place] [id number] Bernardo as RAFAEL?BLEA [phone] [address] OFFICE [facility] 2021-08-14 2021-08-14 [facility] 1.2.840.114 [id number] Univers 00:00:00 00:00:00 [facility] [id number] it y of [place] [id number] Bernardo as RAFAEL?BLEA [phone] [address] OFFICE [facility] 2021-07-09 2021-07-09 Outpatient R ALPHONSE [facility] [id number] Univers 07:30:00 08:22:25 EDWIGE ellie [facility] 2021-07-09 2021-07-09 Office [facility] [id number] [id number] Univers 07:30:00 08:22:25 Visit [facility] [id number] it y of [place] [id number] Bernardo as RAFAEL?BLEA [phone] [facility] MIRANDA[address] MEDICAL OFFICE BUILDING 2021-07-09 2021-07-09 Orders Doctor ANSELMO [id number] [id number] Univers 00:00:00 00:00:00 Only Unassigned, FRANCK [id number] ity of [place] [facility] [id number] Bernardo as [phone] [address] 2021-07-04 2021-07-04 Reftadeo Cunha [facility] 1.2.840.114 [id number] Univers 00:00:00 00:00:00 [facility] [id number] it y of [place] [id number] Bernardo as PROFESSIO [phone] [address] OFFICE [facility] ONE 2021-06-17 2021-06-17 Outpatient Zahraa PEREZ [facility] [id number] Univers 16:30:00 16:30:00 CHACHO [facility] 2021-06-13 2021-06-13 [place], [place] 1.2.840.114 [id number] Univers 00:00:00 00:00:00 [facility] [id number] it y of [place] [id number] Bernardo as RAFAEL?BLEA [phone] [address] MEDICAL OFFICE [facility] 2021-05-30 2021-05-30 Outpatient Zahraa CUNHA [facility] [id number] Univers 07:15:00 07:15:00 EDWIGE [facility] 2021-05-30 2021-05-30 Outpatient Zahraa CUNHA [facility] [id number] Univers 07:15:00 07:15:[facility] 2021-05-28 2021-05-28 Raj [facility] [id number] Univers 00:00:00 00:00:00 [facility] [id number] it y of [place] [id number] Bernardo as PROFESSIO [phone] Mi taylor MCLEAN [address] [place] [address] OFFICE [facility] ONE 2021-05-28 2021-05-28 Telephone [facility] [id number] Univers 00:00:00 00:00:00 Edwige HEALTH [id number] it y of [place] [id number] Bernardo as RAFAEL?BLEA [phone] [facility] JEAN[address] OFFICE [facility] 2021-05-07 2021-05-07 [facility]o [facility] [id number] [id number] Univers 00:00:00 00:00:00 Edwige HEALTH [id number] it y of [place] [id number] Bernardo as RAFAEL?BLEA [phone] [facility] JEAN[address] OFFICE [facility] 2021-04-25 2021-04-25 [facility] [id number] Univers 00:00:00 00:00:00 Edwige HEALTH [id number] it y of [place] [id number] Bernardo as RAFAEL?BLEA [phone] [address] OFFICE [facility] 2021-04-05 2021-04-05 [facility] [id number] [id number] Univers 00:00:00 00:00:00 Edwige HEALTH [id number] it y of [place] [id number] Bernardo as RAFAEL?BLEA [phone] [address] OFFICE [facility] 2021-03-25 2021-03-25 Henlawson [facility] [id number] Univers 00:00:00 00:00:00 Edwige HEALTH [id number] it y of [place] [id number] Bernardo as RAFAEL?BLEA [phone] [address] OFFICE [facility] 2021-03-15 2021-03-15 Tessa GARCIA [facility] [id number] Univers 08:30:00 08:30:00 AALNA joy [facility] 2021-03-06 2021-03-06 Refill [facility] [id number] Univers 00:00:00 00:00:00 [facility] [id number] it y of [place] [id number] Bernardo as Rafael?Blea [phone] [facility] jean[address] Medical Office Building 2021-02-28 2021-02-28 Office [facility] [id number] [id number] Univers 07:19:15 07:34:15 [facility] [id number] it y of [place] [id number] Bernardo as Rafael?Blea [phone] [address] Office [facility] 2021-02-28 2021-02-28 Outpatient Zahraa CUNHA [facility] [id number] Univers 07:30:00 07:30:00 EDWIGE ellie [facility] 2021-02-04 2021-02-04 Telephone [facility] [id number] Univers 00:00:00 00:00:00 [facility] [id number] it y of [place] [id number] Bernardo as PROFESSIO [phone] [address] OFFICE [facility] ONE 2020-12-05 2020-12-05 Outpatient Zahraa CUNHA [facility] [id number] Univers 10:00:00 10:00:00 EDWIGE ellie [facility] 2020-10-11 2020-10-11 Outpatient Zahraa CUNHA [facility] [id number] Univers 09:00:00 09:00:00 EDWIGE tolliverellie [facility] 2020-10-01 2020-10-01 Outpatient Zahraa DURAND [facility] [id number] Univers 09:20:00 08:12:36 JOHN joy [facility] 2020-09-29 2020-09-29 Outpatient [facility] [id number] Univers 09:15:00 [facility] 2020-09-08 Outpatient Zahraa DURAND [facility] [id number] Univers 09:05:00 09:09:48 JOHN [facility] 2020-09-08 2020-09-08 Outpatient [facility] [id number] Univers 09:05:00 09:05:00 benita [facility] 2020-07-16 2020-07-16 Outpatient Zahraa CUNHA [facility] [id number] Univers 09:00:00 09:00:00 EDWIGE ellie [facility] 2020-07-09 2020-07-09 Outpatient Zahraa CUNHA [facility] [id number] Univers 07:00:00 07:00:00 EDWIGE ity [facility] 2020-04-05 2020-04-05 Outpatient Zahraa CUNHA [facility] [id number] Univers 09:15:00 09:15:00 EDWIGE ellie [facility] 2020-01-05 2020-01-05 [facility] [id number] Univers 11:00:00 11:00:00 EDWIGE [facility] 2019-10-06 2019-10-06 Telemedici [facility] [id number] [id number] 07:08:57 07:23:57 ne Visit Edwige Wilson [id number] [place] [id number] Professio [phone] nal [facility] Building 2019-10-06 2019-10-06 Outpatient Zahraa CUNHA [facility] [id number] Univers 07:20:00 07:20:00 EDWIGE ity [facility] 2019-09-21 2019-09-21 Outpatient Zahraa CUNHA [facility] [id number] Univers 07:00:00 07:00:00 EDWIGE ellie [facility] 2019-09-12 2019-09-12 [facility]adeo [facility] 1.2.840.114 [id number] 00:00:00 00:00:00 Edwige [facility] [id number] [place] [id number] Professio [phone] nal [facility] Office Building One 2019-09-06 2019-09-06 Joyce [facility] 1.2.840.114 [id number] 00:00:00 00:00:00 Edwige [facility] 350.1.13.10 [place] [id number] Professio [phone] [place] [address] Office Building One 2019-09-01 2019-09-01 Reftadeo Cunha [place] 1.2.840.114 [id number] 00:00:00 00:00:00 Ed[facility] 350.1.13.10 [place] [id number] Professio [phone] [place] [address] Office Building One 2019-08-15 2019-08-15 Reftadeo Cunha [place] 1.2.840.114 [id number] 00:00:00 00:00:00 [facility] 350.1.13.10 [place] [id number] Professio [phone] [place] [address] Office Building One 2019-07-19 2019-07-19 Joyce Cunha [facility] 1.2.840.114 [id number] 00:00:00 00:00:00 [facility] 350.1.13.10 [place] [id number] Professio [phone] [place] [address] Office Building One 2019-07-14 2019-07-14 Joyce Cunha [facility] 1.2.840.114 [id number] 00:00:00 00:00:00 [facility] 350.1.13.10 [place] [id number] Professio [phone] [place] [address] Office Building One 2019-06-23 2019-06-23 Orders Doctor ANSELMO 1.2.840.114 [id number] 00:00:00 00:00:00 Only Unassigned, [place] 350.1.13.10 [place] [facility] 4.2.7.2.686 [phone] [id number] 2019-06-22 2019-06-22 Office Alphonse [facility] 1.2.840.114 [id number] 07:26:56 07:41:56 Visit [facility] 350.1.13.10 [place] [id number] Professio [phone] [place] [address] Office Building One Results This patient has no known results.
--- NOTE | 2022-05-06 16:22 | RAD REPORT ---
EXAM DESCRIPTION: RAD - Humerus Right - 05/06/2022 4:15 pm CLINICAL HISTORY: PAIN COMPARISON: No comparisons FINDINGS: No acute fracture or dislocation is seen.
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
[2022-05-06 17:00] VITALS: TEMP 98.6
[2022-05-06 17:01] VITALS: BP 136/104; O2SAT 97
== END 2022-05-06 16:54 | disposition home or self-care (01) ==
LOC: ER 14:51
DX: S46.811A Strain of other muscles, fascia and tendons at shoulder and upper arm level, right arm, initial encounter (principal); I10 Essential (primary) hypertension; F17.210 Nicotine dependence, cigarettes, uncomplicated; Z88.3 Allergy status to other anti-infective agents
CPT/HCPCS: 96372; 99284

== ENCOUNTER 2022-09-22 13:19 | Emergency (ER) | payer SELFPAY ==
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
[2022-09-22 14:30] LABS: Absolute Lymphocytes (CBC) 1.9 K/uL (0.7-4.9); Hematocrit 48.5 % (39.6-49.0); Lymphocytes % 23.8 % (15.3-44.8); MCV 90.7 fL (80-100); MPV 8.4 fL (7.6-11.3); RBC Red Blood Cell Count 5.35 M/uL (4.33-5.43)
[2022-09-22 14:45] LABS: SARS-CoV-2 Antigen Rapid Res Negative (Negative)
[2022-09-22 15:21] LABS: Protime INR 0.96
[2022-09-22 15:43] LABS: ALT/SGPT 36 U/L (16-61); AST/SGOT 20 U/L (15-37); Albumin 3.9 g/dL (3.4-5.0); Alkaline Phosphatase 69 U/L (45-117); BUN Blood Urea Nitrogen 20 mg/dL (7-18); Bicarbonate 28 mEq/L (21-32); Bilirubin Direct 0.3 mg/dL (0-0.2); Bilirubin Total 2.3 mg/dL (0.2-1.0); Glomerular Filtration Rate 75 ml/min (=/>90); Glucose Level 97 mg/dL (74-106); Potassium 3.8 mEq/L (3.5-5.1); Protein, Total 7.6 g/dL (6.4-8.2); Sodium Level 135 mEq/L (136-145)
[2022-09-22 16:55] LABS: Barbiturates NEGATIVE (NEGATIVE); Benzodiazepines NEGATIVE (NEGATIVE); Cocaine POSITIVE (NEGATIVE); METHAMPHETAM NEGATIVE (NEGATIVE); Methadone NEGATIVE (NEGATIVE); Opiates NEGATIVE (NEGATIVE); Phencyclidine NEGATIVE (NEGATIVE); THC Cannibis NEGATIVE (NEGATIVE)
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
[2022-09-22 21:10] VITALS: TEMP 97
[2022-09-22 21:16] VITALS: BP 149/104; O2SAT 98
--- NOTE | 2022-09-24 14:11 | EKG ---
Test Date: 2022-09-22 Test Time: 14:43:57 Granulator Operator: WILL MEASUREMENT RESULTS: Intervals: Rate: 73 WI: 198 QRSD: 74 QT: 440 QTc: 484 [place]: P: 70 WI: 198 QRS: 18 T: 86 INTERPRETIVE STATEMENTS: Sinus rhythm with occasional premature ventricular complexes Nonspecific T wave abnormality Prolonged QT Abnormal ECG Compared to ECG 10/31/2019 13:14:56 T-wave abnormality now present Prolonged QT interval now present Electronically Signed On 09-24-22 14:08:47 CDT by Javid Brown
== END 2022-09-22 20:37 | disposition home or self-care (01) ==
LOC: ER 13:19
DX: F43.0 Acute stress reaction (principal)
CPT/HCPCS: 36415; 80048; 80076; 80307; 85025; 85610; 85730; 87811; 93005; 99284; G0480

== ENCOUNTER 2023-01-23 21:18 | Observation (INO) | payer SELFPAY ==
--- OUTSIDE RECORDS SUMMARY | 2023-01-23 21:30 | XMS REPORT | Continuity of Care Document ---
:1970 Author Organization [facility] t Address [address] [facility]. [address] [place] [address] Care Team Providers Name Role Phone Edwige Cunha MD Primary Care Physician Doctor Unassigned, [place] Attending Clinician Unavailable Edwige Cunha MD Attending Clinician EDWIGE CUNHA Attending Clinician Unavailable CHACHO PEREZ Attending Clinician Unavailable ALANA GARCIA Attending Clinician Unavailable JOHN DURAND Attending Clinician Unavailable Payers Payer Name Policy Type Policy Number Effective Date Expiration Date S [facility] [id number] 2021 00:00:00 Problems Condition Condition Condition Status Onset Resolution Last Treating Co mments Source Name Details Category Date Date Treatment Clinician Date Morbid Morbid Disease Active Univers obesity obesity - ity of 00:00: [address] Branch Family Family Disease Active Univers history of history of - [place] of [place] 00[place]: [place] (myocardia (myocardia 00 Me dical l l Branch infarction infarction ) ) History of History of Disease Active U nivers CVA CVA - ity of [place] Medical accident[place] accident) Bran ch Anxiety Anxiety Disease Active 2019- Univers 5-06 ity of 00:00: [address] Branch Agitation Agitation Disease Active Uni [...] Antibiot adverse 00:00: [place] ics reaction 00 [facility] s Branch Social History Social Habit Start Date Stop Date Quantity Comments Source History of tobacco Snuff User Univer sity of use [facility] Alcohol intake 2020-04-05 2020-04-05 1.71 /d University of 00:00:00 00:00:00 [facility] Cigarettes smoked 2018-09-27 2018-09-27 Univers ity of current (pack per 00:00:00 00:00:00 ) - Reported Branch Cigarette 2018-09-27 2018-09-27 University of pack-years 00:00:00 00:00:00 [facility] Tobacco use and 2018-09-27 2018-09-27 User of Universit y of exposure 00:00:00 00:00:00 smokeless [facility] Sex Assigned At [birth year] Universit y of 00:00:00 00:00:00 [facility] Smoking Status Start Date Stop Date Source Smokes tobacco daily 2018-09-27 00:00:[address] [facility] Medications Ordered Filled Start Stop Current [...] Indication s: chronic pain dextroamphe 2021-0 Yes [id number] 20mg Take 1 Univers tamine-amph 4-26 tablet by ity of [place] 20 [place] (two) Medical times Branch daily. dextroamphe 2022-0 Yes [id number] 20mg Take 1 Univers tamine-amph 4-26 tablet by ity of [place] 20 [place] 00 (two) Medical times Branch daily. dextroamphe 2022-0 Yes [id number] 20mg Take 1 Univers tamine-amph 4-26 tablet by ity of [place] 20 [place] (two) Medical times Branch daily. dextroamphe 2022-0 Yes [id number] 20mg Take 1 Univers tamine-amph 4-26 tablet by ity of [place] 20 [place] 00 (two) Medical times Branch daily. dextroamphe 2022-0 Yes [id number] 20mg Take 1 Univers tamine-amph 4-26 tablet by ity of [place] 20 [place] 00 (two) Medical times Branch daily. dextroamphe 2022-0 Yes [id number] 20mg Take 1 Univers tamine-amph 4-26 tablet by ity of [place]amine 20 [place] 00 (two) Medical times Branch daily. dextroamphe 2022-0 Yes [id number] 20mg Take 1 Univers tamine-amph 4-26 tablet [...] Indication s: chronic pain dextroamphe 2021-0 Yes [id number] 20mg Take 1 Univers tamine-amph 3-23 tablet by ity of [place] 20 [place] 00 (two) Medical times Branch daily. dextroamphe Yes [id number] 20mg Take 1 Univers tamine-amph 3-23 tablet by ity of [place] 20 [place] 00 (two) Medical times Branch daily. dextroamphe 2021- No [id number] 20mg Take 1 Univers tamine-amph 3-23 - tablet by it y of etamine 20 00:00: 00:00 mouth 2 Bernardo as mg tablet 00 :00 (two) Medical times Branch daily. lisinopriL 0 Yes [id number] 40mg Take 2 U nivers 20 mg 2-15 tablets by ity of tablet 00:00: mouth [place] 00 daily. Medical Branch atorvastati 0 Yes [id number] TK 1 T PO Univers n 40 mg 2-15 QHS ity of tablet 00:00: [place] 00 Medical Branch lisinopriL 2021-0 Yes [id number] 40mg Take 2 U nivers 20 mg 2-15 tablets by ity of tablet 00:00: mouth [place] 00 daily. Medical Branch atorvastati 2021-0 Yes [id number] TK 1 T PO Univers n 40 mg 2-15 QHS ity of tablet 00:00: [place] 00 Medical Branch lisinopriL 2021-0 Yes [id number] 40mg Take 2 U nivers 20 mg 2-15 tablets by ity of tablet 00:00: mouth [place] 00 daily. Medical Branch atorvastati 0 Yes [id number] TK 1 T PO Univers n 40 mg 2-15 QHS ity of tablet 00:00: [place] 00 Medical Branch lisinopriL 2021-0 Yes [id number] 40mg Take 2 U nivers 20 mg 2-15 tablets by ity of tablet 00:00: mouth 00 daily. Medical Branch atorvastati 0 Yes [id number] TK 1 T PO Univers n 40 mg 2-15 QHS ity of tablet 00:00: [place] 00 Medical Branch lisinopriL 2021-0 Yes [id number] 40mg Take 2 U nivers 20 mg 2-15 tablets by ity of tablet 00:00: mouth 00 daily. Medical Branch atorvastati 0 Yes [id number] TK 1 T PO Univers n 40 mg 2-15 QHS ity of tablet 00:00: [place] 00 Medical Branch lisinopriL 2021-0 Yes [id number] 40mg Take 2 U nivers 20 mg 2-15 tablets by ity of tablet 00:00: mouth 00 daily. Medical Branch atorvastati 0 Yes [id number] TK 1 T PO Univers n 40 mg 2-15 QHS ity of tablet 00:00: [place] 00 Medical Branch lisinopriL 2021-0 Yes [id number] 40mg Take 2 U nivers 20 mg 2-15 tablets by ity of tablet 00:00: mouth 00 daily. Medical Branch atorvastati 0 Yes [id number] TK 1 T PO Univers n 40 mg 2-15 QHS ity of tablet 00:00: [place] 00 Medical Branch lisinopriL 2021-0 Yes [id number] 40mg Take 2 U nivers 20 mg 2-15 tablets by ity of tablet 00:00: mouth daily. Medical Branch atorvastati 0 Yes [id number] TK 1 T PO Univers n 40 mg 2-15 QHS ity of tablet 00:00: [place] 00 Medical Branch lisinopriL 2021-0 Yes [id number] 40mg Take 2 U nivers 20 mg 2-15 tablets by ity of tablet 00:00: mouth 00 daily. Medical Branch atorvastati 0 Yes [id number] TK 1 T PO Univers n 40 mg 2-15 QHS ity of tablet 00:00: [place] 00 Medical Branch dextroamphe 2021-0 2021- No [id number] 20mg Take 1 Univers tamine-amph 2-15 -23 [...] 4-6). Indication s: chronic pain diclofenac Yes [id number] 75mg Take 1 U nivers 75 mg EC 1-10 tablet by ity of tablet 00:00: mouth (two) Medical times Branch daily with meals. diclofenac Yes [id number] 75mg Take 1 U nivers 75 mg EC 1-10 tablet by ity of tablet 00:00: mouth (two) Medical times Branch daily with meals. diclofenac Yes [id number] 75mg Take 1 U nivers 75 mg EC 1-10 tablet by ity of tablet 00:00: mouth (two) Medical times Branch daily with meals. diclofenac Yes [id number] 75mg Take 1 U nivers 75 mg EC 1-10 tablet by ity of tablet 00:00: mouth (two) Medical times Branch daily with meals. diclofenac Yes [id number] 75mg Take 1 U nivers 75 mg EC 1-10 tablet by ity of tablet 00:00: mouth (two) Medical times Branch daily with meals. diclofenac Yes [id number] 75mg Take 1 U nivers 75 mg EC 1-10 tablet by ity of tablet 00:00: mouth (two) Medical times Branch daily with meals. diclofenac Yes [id number] 75mg Take 1 U nivers 75 mg EC 1-10 tablet by ity of tablet 00:00: mouth (two) Medical times Branch daily with meals. diclofenac Yes [id number] 75mg Take 1 U nivers 75 mg EC 1-10 tablet by ity of tablet 00:00: mouth (two) Medical times Branch daily with meals. diclofenac Yes [id number] 75mg Take 1 U nivers 75 mg EC 1-10 tablet by ity of tablet 00:00: mouth (two) Medical times Branch daily with meals. aspirin 81 2017- Yes TK 1 T PO Un sheila mg EC 6-13 QD ity of tablet 00:00: [place] 00 Medical Branch aspirin 81 2018-0 Yes TK 1 T PO Un sheila mg EC 6-13 QD ity of tablet 00:00: [place] Medical [facility] aspirin 81 2018-0 Yes TK 1 T PO Un sheila mg EC 6-13 QD ity of tablet 00:00: [place] Medical [facility] aspirin 81 2018-0 Yes TK 1 T PO Un sheila mg EC 6-13 QD ity of tablet 00:00: [place] Medical [facility] aspirin 81 2018-0 Yes TK 1 T PO Un sheila mg EC 6-13 QD ity of tablet 00:00: [place] Medical [facility] aspirin 81 2018-0 Yes TK 1 T PO Un sheila mg EC 6-13 QD ity of tablet 00:00: [place] Medical [facility] aspirin 81 2018-0 Yes TK 1 T PO Un sheila mg EC 6-13 QD ity of tablet 00:00: [place] Medical [facility] aspirin 81 2018-0 Yes TK 1 T PO Un sheila mg EC 6-13 QD ity of tablet 00:00: [place] Medical Branch aspirin 81 2018-0 Yes TK 1 T PO Un sheila mg EC 6-13 QD ity of tablet 00:00: [place] [facility] Branch Immunizations Ordered Filled Immunization Date Status Comments [facility] e Immunization Name Name SARS-COV-2 COVID-19 2020-10-01 Completed Unive rsity of PFIZER VACCINE 00:00:00 [facility] SARS-COV-2 COVID-19 2020-10-01 Completed Unive rsity of PFIZER VACCINE 00:00:00 [facility] SARS-COV-2 COVID-19 2020-10-01 Completed Unive rsity of PFIZER VACCINE 00:00:00 [facility] SARS-COV-2 COVID-19 2020-10-01 Completed Unive rsity of PFIZER VACCINE 00:00:00 [facility] SARS-COV-2 COVID-19 2020-10-01 Completed Unive rsity of PFIZER VACCINE 00:00:00 [facility] SARS-COV-2 COVID-19 2020-10-01 Completed Unive rsity of PFIZER VACCINE 00:00:00 [facility] SARS-COV-2 COVID-19 2020-10-01 Completed Unive rsity of PFIZER VACCINE 00:00:00 [facility] SARS-COV-2 COVID-19 2020-10-01 Completed Unive rsity of PFIZER VACCINE 00:00:00 [facility] SARS-COV-2 COVID-19 2020-10-01 Completed Unive rsity of PFIZER VACCINE 00:00:00 [facility] SARS-COV-2 COVID-19 2020-09-08 Completed Unive rsity of PFIZER VACCINE 00:00:00 [facility] SARS-COV-2 COVID-19 2020-09-08 Completed Unive rsity of PFIZER VACCINE 00:00:00 [facility] SARS-COV-2 COVID-19 2020-09-08 Completed Unive rsity of PFIZER VACCINE 00:00:00 [facility] SARS-COV-2 COVID-19 2020-09-08 Completed Unive rsity of PFIZER VACCINE 00:00:00 [facility] SARS-COV-2 COVID-19 2020-09-08 Completed Unive rsity of PFIZER VACCINE 00:00:00 [facility] SARS-COV-2 COVID-19 2020-09-08 Completed Unive rsity of PFIZER VACCINE 00:00:00 [facility] SARS-COV-2 COVID-19 2020-09-08 Completed Unive rsity of PFIZER VACCINE 00:00:00 [facility] SARS-COV-2 COVID-19 2020-09-08 Completed Unive rsity of PFIZER VACCINE 00:00:00 [facility] SARS-COV-2 COVID-19 2020-09-08 Completed Unive rsity of PFIZER VACCINE 00:00:00 [facility] Procedures Procedure Date / Time Performed Performing Clinician [facility] e EXTERNAL PROVIDER 2022-05-22 06:01:00 Doctor Unassigned, No Univ ersity of [place] RECORDS Name Medical Branch Encounters Start End Encounter Admission Attending Care Care Encounter Source Date/Time Date/Time Type Type Clinicians Facility Department ID 2022-05-22 2022-05-22 Orders Doctor BRIONES [id number] [id number] Univers 00:00:00 00:00:00 Only Unassigned, [place]AN[place] 350.1.13.10 ity of [place] [facility] [id number] Bernardo as [phone] [place] [address] Branch 2022-05-07 2022-05-07 Telephone SAPPHIRE Cunha [id number] Univers 00:00:00 00:00:00 Edwige HEALTH [id number] it y of [place] [id number] Bernardo as RAFAEL?BLEA [phone] [address] OFFICE [facility] 2021-11-12 2021-11-12 [facility] [id number] [id number] Univers 00:00:00 00:00:00 Edwige HEALTH [id number] it y of [place] [id number] Bernardo as RAFAEL?BLEA [phone] [address] OFFICE [facility] 2021-10-14 2021-10-14 Outpatient Zahraa CUNHA [facility] [id number] Univers 12:45:00 12:45:00 [facility] 2021-10-10 2021-10-10 Georgina [facility] [id number] [id number] Univers 00:00:00 00:00:00 (Out) [facility] [id number] it y of [place] [id number] Bernardo as RAFAEL?BLEA [phone] [address] 2021-10-08 2021-10-08 Telephone [facility] [id number] Univers 00:00:00 00:00:00 [facility] [id number] it y of [place] [id number] Bernardo as RAFAEL?BLEA [id number] [address] OFFICE [facility] 2021-10-03 2021-10-03 Outpatient Zahraa CUNHA [facility] [id number] Univers 07:15:00 07:15:00 [facility] 2021-10-03 2021-10-03 Outpatient Zahraa CUNHA [facility] [id number] Univers 07:15:00 07:15:00 [facility] 2021-10-01 2021-10-01 Letter [facility] [id number] [id number] Univers 00:00:00 00:00:00 (Out) [place] [facility] [id number] it y of [place] [id number] Bernardo as RAFAEL?BLEA [phone] [address] MEDICAL OFFICE [facility] 2021-09-17 2021-09-17 [facility] 1.2.840.114 [id number] Univers 00:00:00 00:00:00 Edwige HEALTH [id number] it y of [place] [id number] Bernardo as RAFAEL?BLEA [phone] [address] MEDICAL OFFICE [facility] 2021-09-05 2021-09-05 Telephone [facility] [id number] Univers 00:00:00 00:00:00 [place] [facility] [id number] it y of [place] [id number] Bernardo as RAFAEL?BLEA [phone] [address] OFFICE [facility] 2021-08-14 2021-08-14 [facility] 1.2.840.114 [id number] Univers 00:00:00 00:00:00 [facility] [id number] it y of [place] [id number] Bernardo as RAFAEL?BLEA [id number] [address] OFFICE [facility] 2021-07-09 2021-07-09 Outpatient [facility] [id number] Univers 07:30:00 08:22:25 EDWIGE ity [facility] 2021-07-09 2021-07-09 Office [facility] 1.2.840.114 [id number] Univers 07:30:00 08:22:25 Visit [facility] [id number] it y of [place] [id number] Bernardo as RAFAEL?BLEA [phone] [address] OFFICE [facility] 2021-07-09 2021-07-09 Orders Doctor BRIONES 1.2.840.114 [id number] Univers 00:00:00 00:00:00 Only Unassigned, [place] 350.1.13.10 ity of [facility] 4.2.7.2.686 Bern[place] as [phone] [address] 2021-07-04 2021-07-04 Joyce [facility] 1.2.840.114 [id number] Univers 00:00:00 00:00:00 Edwige HEALTH 350.1.13.10 it y of [place] [id number] Bernardo as PROFESSIO [phone] [facility] NAL [address] [place] [address] OFFICE [facility] ONE 2021-06-17 2021-06-17 Outpatient Zahraa PEREZ [facility] [id number] Univers 16:30:00 16:30:00 CHACHO [facility] 2021-06-13 2021-06-13 [facility] 1.2.840.114 [id number] Univers 00:00:00 00:00:00 [facility] [id number] it y of [place] 4.2.7.2.686 Bernardo as RAFAEL?BLEA [id number] Wi zaynasir NATHANIEL [address] [place] [address] 2021-05-30 2021-05-30 [facility] [id number] Univers 07:15:00 07:15:00 [facility] 2021-05-30 2021-05-30 Outpatient [facility]ahraa [facility] [id number] Univers 07:15:00 07:15:00 [facility] 2021-05-28 2021-05-28 Telephone [facility] [id number] Univers 00:00:00 00:00:00 [facility] [id number] it y of [place] [id number] Bernardo as PROFESSIO [phone] [facility] NAL [address] [place] [address] 2021-05-28 2021-05-28 Raj [facility] [id number] Univers 00:00:00 00:00:00 Edwige HEALTH 350.1.13.10 it y of [place] [id number] Bernardo as RAFAEL?BLEA [phone] [facility] [address] OFFICE [facility] 2021-05-07 2021-05-07 Reftadeo [facility] 1.2.840.114 [id number] Univers 00:00:00 00:00:00 Edw[facility] HEALTH [id number] it y of [place] [id number] Bernardo as RAFAEL?BLEA [phone] [address] OFFICE [facility] 2021-04-25 2021-04-25 Telephone [facility] [id number] Univers 00:00:00 00:00:00 Ed[facility] HE[facility] [id number] it y of [place] 4.2.7.2.686 Bernardo as RAFAEL?BLEA [phone] [address] OFFICE [facility] 2021-04-05 2021-04-05 [facility] 1.2.840.114 [id number] Univers 00:00:00 00:00:00 [facility] 350.1.13.10 it y of [place] 4.2.7.2.686 Bernardo as RAFAEL?BLEA [id number] [address] OFFICE [facility] 2021-03-25 2021-03-25 Telephone [facility] [id number] Univers 00:00:00 00:00:00 [facility] 350.1.13.10 it y of [place] 4.2.7.2.686 Bernardo as RAFAEL?BLEA [id number] [address] OFFICE [facility] 2021-03-15 2021-03-15 Outpatient R RADHA [facility] [id number] Univers 08:30:00 08:30:00 ALANA joy [facility] 2021-03-06 2021-03-06 [facility] 1.2.840.114 [id number] Univers 00:00:00 00:00:00 Edw[facility] 350.1.13.10 it y of [place] 4.2.7.2.686 Bernardo as Rafael?Blea [phone] [address] Office [facility] 2021-02-28 2021-02-28 Office [facility] 1.2.840.114 [id number] Univers 07:19:15 07:34:15 Visit [facility] [id number] it y of [place] 4.2.7.2.686 Bernardo as Rafael?Blea [phone] Wi taylor kney [address] [place] [address] Office Building 2021-02-28 2021-02-28 Outpatient Zahraa CUNHA [facility] [id number] Univers 07:30:00 07:30:00 EDWIGE ellie [facility] 2021-02-04 2021-02-04 Telephone [facility] [id number] Univers 00:00:00 00:00:00 [facility] [id number] it y of [place] 4.2.7.2.686 Bernardo as PROFESSIO [id number] [address] OFFICE [facility] ONE 2020-12-05 2020-12-05 Outpatient Zahraa CUNHA [facility] [id number] Univers 10:00:00 10:00:00 [facility] 2020-10-11 2020-10-11 Outpatient Zahraa CUNHA [facility] [id number] Univers 09:00:00 09:00:00 [facility] 2020-10-01 2020-10-01 Outpatient [facility] [id number] Univers 09:20:00 08:12:36 JOHN [facility] 2020-09-29 2020-09-29 Outpatient [facility] [id number] Univers 09:15[facility]00 [facility] 2020-09-08 Out[facility] [id number] Univers 09:05:00 09:09:48 JOHN [facility] 2020-09-08 2020-09-08 Outpatient [facility] [id number] Univers 09:05:00 09:05:00 [facility] 2020-07-16 2020-07-16 Outpatient [facility] [id number] Univers 09:00:00 09:00:00 EDWIGE joy [facility] 2020-07-09 2020-07-09 Outpatient Zahraa CUNHA [facility] [id number] Univers 07:00:00 07:00:00 EDWIGE joy [facility] 2020-04-05 2020-04-05 Outpatient Zahraa CUNHA [facility] [id number] Univers 09:15:00 09:15:00 EDWIGE joy [facility] 2020-01-05 2020-01-05 Outpatient Zahraa CUNHA [facility] [id number] Univers 11:00:00 11:00:00 EDWIGE joy [facility] 2019-10-06 2019-10-06 Telemedici [facility] 1.2.840.114 [id number] 07:08:57 07:23:57 ne Visit [place] 350.1.13.10 [place] [id number] Professio [id number] [address] 2019-10-06 2019-10-06 Outpatient Zahraa CUNHA [facility] [id number] Univers 07:20:00 07:20:00 EDWIGE joy [facility] 2019-09-21 2019-09-21 Outpatient Zahraa CUNHA [facility] [id number] Univers 07:00:00 07:00:00 EDWIGE joy [facility] 2019-09-12 2019-09-12 Reftadeo [facility] 1.2.840.114 [id number] 00:00:00 00:00:00 [facility] [id number] [place] [id number] One 2019-09-06 2019-09-06 Joyce [facility] 1.2.840.114 [id number] 00:00:00 00:00:00 [facility] 350.1.13.10 [place] [id number] Professio [id number] [address] One 2019-09-01 2019-09-01 Joyce [facility] 1.2.840.114 [id number] 00:00:00 00:00:00 [facility] 350.1.13.10 [place] [id number] Professio [phone] nal [address] Office Building One 2019-08-15 2019-08-15 Joyce Cunha [facility] 1.2.840.114 [id number] 00:00:00 00:00:00 Edwige [facility] 350.1.13.10 [place] [id number] Professio [phone] nal [facility] Office Building One 2019-07-19 2019-07-19 Joyce [facility] 1.2.840.114 [id number] 00:00:00 00:00:00 [facility] [id number] [place] [id number] Professio [phone] nal [facility] Office Building One 2019-07-14 2019-07-14 Joyce Cunha [facility] 1.2.840.114 [id number] 00:00:00 00:00:00 [facility] [id number] [place] [id number] Professio [phone] nal [facility] Office Building One 2019-06-23 2019-06-23 Orders Doctor ANSELMO 1.2.840.114 [id number] 00:00:00 00:00:00 Only Unassigned, [place] 350.1.13.10 [place] [facility] 4.2.7.2.686 [id number] 2019-06-22 2019-06-22 Office [facility] 1.2.840.114 [id number] 07:26:56 07:41:56 Visit [facility] 350.1.13.10 [place] 4.2.7.2.686 Professio [phone] [place] [address] Office Building One Results This patient has no known results.
[2023-01-23 23:00] LABS: Hematocrit 45.5 % (39.6-49.0); Lymphocytes % 12.1 % (15.3-44.8); MPV 8.5 fL (7.6-11.3); Platelets 234 thou/uL (152-406)
[2023-01-23 23:01] LABS: Absolute Lymphocytes (CBC) 1.4 K/uL (0.7-4.9)
[2023-01-23] MEDS ORDERED: ASPIRIN 81 MG CHEWABLE TABLET ONE (23:06)
[2023-01-23] MEDS ORDERED: ACETAMINOPHEN 500 MG TAB ONE (23:06)
[2023-01-23] MEDS ORDERED: NA CHLORIDE 0.9% 1,000 ML ONE (23:06)
[2023-01-23] MEDS ORDERED: FAMOTIDINE 20 MG/2 ML VIAL IV ONE (23:06)
[2023-01-23 23:10] LABS: Protime INR 0.99
[2023-01-23 23:27] LABS: SARS-CoV-2 Antigen Rapid Res Negative (Negative)
[2023-01-23 23:32] LABS: ALT/SGPT 37 U/L (16-61); Albumin 3.9 g/dL (3.4-5.0); Alkaline Phosphatase 67 U/L (45-117); BUN Blood Urea Nitrogen 17 mg/dL (7-18); Bicarbonate 26 mEq/L (21-32); Bilirubin Direct 0.3 mg/dL (0-0.2); Bilirubin Indirect, Calculated 1.6 mg/dL (0.2-0.8); Bilirubin Total 1.9 mg/dL (0.2-1.0); Glomerular Filtration Rate 51 ml/min (=/>90); Glucose Level 140 mg/dL (74-106); Lipase 30 U/L (13-75); NT PRO-BNP 424 pg/mL (<125); Protein, Total 7.1 g/dL (6.4-8.2); Sodium Level 136 mEq/L (136-145); Troponin High Sensitivity 21.9 pg/mL (<58.9)
[2023-01-23 23:33] LABS: AST/SGOT 31 U/L (15-37); Magnesium 2.1 mg/dL (1.6-2.4); Potassium 4.1 mEq/L (3.5-5.1)
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
[2023-01-24] MEDS ORDERED: LORazepam 2 MG/ML VIAL ONE (01:08)
[2023-01-24] MEDS ORDERED: ENOXAPARIN 100 MG/ML SYR SQ ONE (01:09)
[2023-01-24] MEDS ORDERED: MORPHINE 2 MG/ML SYR ONE (02:56)
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
[2023-01-24] MEDS ORDERED: ONDANSETRON 4 MG/2 ML VIAL IV PRN (04:12)
[2023-01-24] MEDS ORDERED: MORPHINE 2 MG/ML SYR IV PRN (04:12)
[2023-01-24] MEDS ORDERED: LORazepam 2 MG/ML VIAL IV PRN (04:12)
[2023-01-24 04:21] VITALS: BMI 45.7
[2023-01-24 04:35] VITALS: O2SAT 96
[2023-01-24] MEDS: NA CHLORIDE 0.9% 1,000 ML IV SCH ×2 (04:42→12:37)
[2023-01-24 08:12] LABS: Absolute Lymphocytes (CBC) 1.4 K/uL (0.7-4.9); Hematocrit 44.6 % (39.6-49.0); Lymphocytes % 17.5 % (15.3-44.8); MCV 91.2 fL (80-100); MPV 7.8 fL (7.6-11.3); Platelets 204 thou/uL (152-406); RBC Red Blood Cell Count 4.89 M/uL (4.33-5.43)
[2023-01-24 08:36] LABS: Potassium 3.8 mEq/L (3.5-5.1); Thyroid Stimulating Hormone 1.52 uIU/mL (0.358-3.740)
[2023-01-24] MEDS ORDERED: ENOXAPARIN 40 MG/0.4 ML SQ SCH (09:00)
[2023-01-24] MEDS ORDERED: ASPIRIN EC 81 MG TAB PO SCH (09:00)
[2023-01-24 14:18] LABS: Barbiturates NEGATIVE (NEGATIVE); Benzodiazepines NEGATIVE (NEGATIVE); Cocaine POSITIVE (NEGATIVE); METHAMPHETAM NEGATIVE (NEGATIVE); Methadone NEGATIVE (NEGATIVE); Opiates NEGATIVE (NEGATIVE); Phencyclidine NEGATIVE (NEGATIVE); THC Cannibis NEGATIVE (NEGATIVE)
--- NOTE | 2023-01-24 14:37 | EKG ---
Test Date: 2023-01-23 Test Time: 22:28:08 Control Clerk: RV MEASUREMENT RESULTS: Intervals: Rate: 80 WV: 172 QRSD: 80 QT: 396 QTc: 456 [place]: P: -10 WV: 172 QRS: 3 T: -39 INTERPRETIVE STATEMENTS: Sinus rhythm with frequent premature ventricular complexes and fusion complexes Moderate voltage criteria for LVH, may be normal variant Nonspecific T wave abnormality Abnormal ECG Compared to ECG 09/22/2022 14:43:57 Fusion complex(es) now present Left ventricular hypertrophy now present Prolonged QT interval no longer present T-wave abnormality still present Electronically Signed On 01-24-23 14:36:03 CDT by Javid Brown
--- NOTE | 2023-01-24 16:24 | CON ---
Date of Consultation: 01/24/2023 Reason For Consultation: Chest pain. History Of Present Illness: A 52-year-old with history of hypertension, depression. He came in with chief complaint of sharp chest pains and shortness of breath at time along with significa nt depression, but no suicidal thoughts. Pain is not related to exertion. He is obese. Past Medical History: Hypertension and dyslipidemia. Medications: Refer to reconciliation sheet for detailed list. Medications: Reviewed. Allergies: HE IS ALLERGIC TO ANTIBIOTICS. Family History: No premature coronary artery disease or cancer. Social History: He does not smoke or drink. Denies any drugs. Review of Systems: All systems were reviewed, they were negative except what was mentioned in HPI. Physical Examination: Vital Signs: Reviewed. Head and Neck: Pupils are equal, reactive to light. Intact eye movements. No JVD. No cervical lym phadenopathy. Neck is supple. Thyroid is not enlarged. Lungs: Clear to auscultation bilaterally. No rhonchi, rales, or crackles. No accessory muscle use. Heart: Regular rate and rhythm. No extra sounds. Abdomen: Soft, nontender. Bowel sounds positive. No organomegaly. No masses or hernia. No rigidi ty or rebound. Extremities: No edema, clubbing, cyanosis. Intact pulses. Skin: No rashes. Neurologic: Alert, awake. No acute focal deficits appreciated. Investigations: Hemoglobin 15.3, white blood count is 8. BUN 18, creatinine 1.13, and creatinine on arrival was 1.61. Cholesterol LDL is 135. Assessment/recommendation: 1.Chest pain. First set of cardiac enzyme is negative. Trend 2 more sets of cardiac enzymes. If t hey are negative, patient can be released to follow up as an outpatient for stress test and echo. 2.Dyslipidemia. Recommend Lipitor 40 mg at bedtime. 3.Acute renal failure due to dehydration, resolved. D-dimer was checked and it is negative. SR/MODL Voice ID: [id number] Report ID: [id number]
[2023-01-24 16:56] VITALS: BP 135/75; TEMP 97
[2023-01-24] MEDS ORDERED: ATORVASTATIN 40 MG TAB PO SCH (21:00)
--- NOTE | 2023-01-24 21:45 | RAD REPORT ---
EXAM DESCRIPTION: RAD - Chest Pa And Lat (2 Views) - 01/23/2023 11:27 pm CLINICAL HISTORY: AIN TECHNIQUE: 2 view chest COMPARISON: None FINDINGS: Cardiac: The heart appears unremarkable. Mediastinum: Trachea midline. Mediastinal contour unremarkable. Lungs/Pleura: The lungs are clear. There is no alveolar consolidation, effusion or pneumothorax. Skeletal System: There are no acute bony or soft tissue abnormalities. IMPRESSION: No acute cardiopulmonary process. Electronically signed by: Juan Eugene MD 01/23/2023 11:38 PM CDT Due to temporary technical issues with the PACS/Fluency reporting system, reports are being signed by the in house radiologists without review as a courtesy to insure prompt reporting. The interpreting radiologist is fully responsible for the content of the report.
== END 2023-01-24 18:15 | disposition left against medical advice (07) ==
LOC: ER 21:18 → ERHOLD 01-24 02:36 → 2ND 01-24 03:49
PROVIDERS: ADMIT Hospitalist; ATTEND Hospitalist
DX: R07.9 Chest pain, unspecified (principal); I10 Essential (primary) hypertension; F41.9 Anxiety disorder, unspecified; F32.A Depression, unspecified; R06.02 Shortness of breath; F14.90 Cocaine use, unspecified, uncomplicated; N17.9 Acute kidney failure, unspecified; E78.5 Hyperlipidemia, unspecified; Z88.3 Allergy status to other anti-infective agents; Z79.82 Long term (current) use of aspirin; Z82.49 Family history of ischemic heart disease and other diseases of the circulatory system; Z20.822 Contact with and (suspected) exposure to COVID-19
CPT/HCPCS: 36415; 71046; 80048; 80061; 80076; 80143; 80179; 80307; 82077; 82550; 83690; 83735; 83880; 84439; 84443; 84484; 85025; 85379; 85610; 85730; 87804; 87811; 93005; 96361; 96372; 96374; 96375; 99285; G0378; J1650; J2270; J7030

== ENCOUNTER 2024-01-06 17:22 | Inpatient (IN) | payer BC, OTHER ==
[2024-01-06] MEDS ORDERED: ONDANSETRON 4 MG/2 ML VIAL ONE (17:55)
[2024-01-06] MEDS ORDERED: MORPHINE 4 MG/ML SYR ONE ×2 (17:56→18:53)
[2024-01-06 18:00] LABS: Absolute Basophils 0.1 K/uL (0-0.5); Absolute Lymphocytes (CBC) 1.8 K/uL (0.7-4.9); Absolute Monocytes 1.4 K/uL (0.1-1.3); Absolute Neutrophil 11.2 K/uL (1.8-8.0); Basophils % 0.6 % (0-1.3); Eosinophils % 0.2 % (0-4.4); Hematocrit 47.2 % (39.6-49.0); Hemoglobin 16.3 g/dL (13.6-17.9); Lymphocytes % 12.5 % (15.3-44.8); MCH 30.8 pg (27.0-35.0); MCHC 34.4 g/dL (32.0-36.0); MCV 89.5 fL (80-100); MPV 8.3 fL (7.6-11.3); Monocytes % 9.3 % (3.3-12.3); Neutrophils % 77.4 % (41.7-73.7); Platelets 265 thou/uL (152-406); RBC Red Blood Cell Count 5.28 M/uL (4.33-5.43); Red Cell Distribution Width 13.7 % (12.1-15.2)
--- NOTE | 2024-01-06 18:08 | RAD REPORT ---
EXAM DESCRIPTION: Matheus Single View01/06/2024 5:43 pm CLINICAL HISTORY: Chest pain COMPARISON: November 2013 FINDINGS: The lungs appear clear of acute infiltrate. The heart is probably borderline enlarged IMPRESSION: No acute abnormalities displayed
[2024-01-06 18:18] LABS: Anion Gap 20.3 mEq/L (5.0-15.0); Magnesium 2.2 mg/dL (1.6-2.4); Potassium 3.3 mEq/L (3.5-5.1); Troponin High Sensitivity 33.2 pg/mL (<58.9)
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
[2024-01-06] MEDS ORDERED: ZOLPIDEM TARTRATE 5 MG TABLET PO PRN (22:09)
[2024-01-06] MEDS ORDERED: ACETAMINOPHEN 500 MG TAB PO PRN (22:09)
[2024-01-06 22:25] VITALS: O2SAT 98
[2024-01-06] MEDS: POTASSIUM CL SA 10 MEQ TAB PO ONE (22:50)
[2024-01-06] MEDS: HYDROCODONE/APAP 5/325 MG TAB PO PRN (22:51)
[2024-01-06] MEDS: ATORVASTATIN 40 MG TAB PO SCH (22:51)
[2024-01-06] MEDS: NA CHLORIDE 0.9% 1,000 ML IV SCH (22:51)
[2024-01-07 05:51] LABS: Anion Gap 9.5 mEq/L (5.0-15.0); Potassium 3.5 mEq/L (3.5-5.1)
[2024-01-07 05:53] LABS: Absolute Basophils 0.1 K/uL (0-0.5); Absolute Eosinophils 0.2 K/uL (0-0.5); Absolute Monocytes 1.2 K/uL (0.1-1.3); Absolute Neutrophil 7.5 K/uL (1.8-8.0); Eosinophils % 1.8 % (0-4.4); Hematocrit 46.8 % (39.6-49.0); Hemoglobin 16.1 g/dL (13.6-17.9); Lymphocytes % 24.8 % (15.3-44.8); MCH 31.2 pg (27.0-35.0); MCHC 34.4 g/dL (32.0-36.0); MCV 90.7 fL (80-100); MPV 9.1 fL (7.6-11.3); Monocytes % 9.9 % (3.3-12.3); Neutrophils % 62.5 % (41.7-73.7); Platelets 237 thou/uL (152-406); RBC Red Blood Cell Count 5.15 M/uL (4.33-5.43); Red Cell Distribution Width 13.8 % (12.1-15.2)
[2024-01-07] MEDS: NA CHLORIDE 0.9% 1,000 ML IV SCH (08:14)
[2024-01-07] MEDS: ASPIRIN EC 81 MG TAB PO SCH (08:15)
[2024-01-07] MEDS: METOPROLOL XL 50 MG TAB PO SCH (08:15)
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
[2024-01-07] MEDS: NA CHLORIDE 0.9% 1,000 ML IV ONE (14:24)
--- NOTE | 2024-01-07 14:32 | RAD REPORT ---
EXAM DESCRIPTION: US - Renal Ultrasound-Complete - 01/07/2024 2:17 pm CLINICAL HISTORY: arias COMPARISON: ABDOMINAL EXAM LIMITED dated 03/24/2011 FINDINGS: Both kidneys are normal in size, shape and echotexture. The right kidney measures 10.1 x 7.2 x 6.7 cm. No hydronephrosis, focal mass or perinephric fluid. The left kidney measures 12.8 x 6.2 x 5.8 cm. No hydronephrosis, focal mass or perinephric fluid. The urinary bladder is incompletely distended without gross abnormality seen. IMPRESSION: Unremarkable renal sonogram.
[2024-01-07] MEDS: POTASSIUM CL 40 MEQ in NA CHLORIDE 0.9% 500 ML IV SCH (15:36)
--- NOTE | 2024-01-07 19:14 | CON ---
Date of Consultation: 01/07/2024 Reason For Consultation: Elevated BUN and creatinine, fluid management. History Of Present Illness: This is a 53-year-old gentleman with significant past medical history of hypertension, hyperlipidemia, obesity, depression, congestive heart failure. The patient came to [facility] after working outside complaining from chest pain, feeling weak, found to have hypertensio n, elevated BUN and creatinine. For that reason, we have been consulted. The patient denied any richar sea, any vomiting. The patient was complaining of cramps. Past Medical History: Includes: 1.Hyperlipidemia. 2.Hypertension. 3.Congestive heart failure. Allergies: . Home Medications: Include aspirin, atorvastatin, lisinopril, metoprolol. Past Surgical History: 1.Reconstruction of leg. 2.Appendectomy. 3.Facial reconstruction. Family History: Positive for CAD, hypertension, lupus. Social History: Active alcohol, active smoker. Ex drug use. Review of Systems: Head and Neck: No red eye. No ear pain. GI: Has abdominal pain. : No polyuria, no dysuria, no hematuria. 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 Respiratory: No shortness of breath. Cardiovascular: Has no chest pain. Endocrine: No polydipsia. Skin: No rash. Neuro: No weakness. Has low back pain. Musculoskeletal: Had cramp. Physical Examination: General: When I saw the patient, the patient was lying in bed. Vital Signs: Blood pressure of 127/79, pulse of 72 afebrile. Chest: Clear to auscultation. Heart: S1, S2. Systolic murmur. Abdomen: Soft, nontender. Extremities: No edema. Neuro: Alert. No focality. Laboratory Data: WBC 14.5, hemoglobin 16.3 that is upon admission. Sodium 135, potassium 3.3, bicar b 20, BUN 34, creatinine 2.9, calcium 10.5. Today's lab data: Sodium 135, potassium 3.5, bicarb 25, BUN 33, creatinine 1.8. GFR 42. Calcium 9.9. Assessment And Plan: 1.Acute kidney injury secondary to prerenal superimposed with TERA inhibitor use on the recovery phas e. I am going to continue hydrating the patient and we will monitor. 2.I agree with holding TERA inhibitor. 3.Hyponatremia, depletional. We will continue IV fluid. 4.Hypokalemia. We will supplement. 5.Hypertension with the presence of acute kidney injury. Continue to hold TERA inhibitor. 6.Heat exertion, dehydration as above. Thank you Dr. Vargas for allowing us to participate in the care of your patient. ASHLEY Voice ID: [id number] Report ID: [id number]
[2024-01-08 00:53] VITALS: TEMP 97.6
[2024-01-08 02:54] VITALS: BMI 39.9
[2024-01-08 07:51] LABS: Anion Gap 6.2 mEq/L (5.0-15.0); Potassium 4.2 mEq/L (3.5-5.1)
[2024-01-08 08:02] VITALS: BP 144/91
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
--- NOTE | 2024-01-12 18:06 | EKG ---
Test Date: 2024-01-06 Test Time: 17:46:40 [place] Finisher: PH MEASUREMENT RESULTS: Intervals: Rate: 102 TN: 180 QRSD: 84 QT: 344 QTc: 448 [place]: P: -16 TN: 180 QRS: 33 T: -87 INTERPRETIVE STATEMENTS: Sinus tachycardia T wave abnormality, consider inferolateral ischemia Abnormal ECG Compared to ECG 12/08/2023 10:34:27 Possible ischemia now present Sinus rhythm no longer present Ventricular premature complex(es) no longer present Left ventricular hypertrophy no longer present Prolonged QT interval no longer present T-wave abnormality still present Electronically Signed On 01-12-24 17:53:43 CDT by Brayan Redmond
== END 2024-01-08 10:58 | disposition home or self-care (01) | DRG 923 ==
LOC: ER 17:22 → ERHOLD 19:36 → 2ND 22:08 → OBSVTOIN 01-07 10:15
PROVIDERS: ADMIT Hospitalist; ATTEND Hospitalist
DX: T67.5XXA Heat exhaustion, unspecified, initial encounter (principal); N17.9 Acute kidney failure, unspecified; E87.1 Hypo-osmolality and hyponatremia; Z68.41 Body mass index [BMI] 40.0-44.9, adult; E66.9 Obesity, unspecified; I10 Essential (primary) hypertension; E86.0 Dehydration; E87.6 Hypokalemia; F32.A Depression, unspecified; E78.2 Mixed hyperlipidemia; M25.512 Pain in left shoulder; F17.210 Nicotine dependence, cigarettes, uncomplicated; Z88.1 Allergy status to other antibiotic agents; Z79.82 Long term (current) use of aspirin; Z90.49 Acquired absence of other specified parts of digestive tract; Z86.73 Personal history of transient ischemic attack (TIA), and cerebral infarction without residual deficits; Z79.899 Other long term (current) drug therapy
CPT/HCPCS: 36415; 71045; 76770; 80048; 80061; 82550; 83735; 84484; 85025; 85379; 93005; 96374; 96375; 99285; G0378; J2405; J3480; J7030; J7040

== ENCOUNTER 2024-12-23 12:21 | Inpatient (IN) | payer OTHER, SELFPAY ==
--- NOTE | 2024-12-23 13:17 | RAD REPORT ---
EXAM: CT brain without contrast HISTORY: STROKE ALERT COMPARISON: 11/03/2017 TECHNIQUE: Multiple contiguous axial images were obtained and a CT of the brain without contrast. Sag ittal and coronal reformats were performed. One or more of the following dose reduction techniques were used: Automated exposure control, adjust ment of the mA and/or kV according to patient size, and/or iterative reconstruction. FINDINGS: No evidence of hydrocephalus, intracranial hemorrhage, or extra-axial fluid collection. The brain is normal in morphology. No evidence of midline shift or areas of brain edema. The calvarium is intact. Mild polypoid mucosal thickening noted in the paranasal sinuses. IMPRESSION: No evidence of acute intracranial abnormality. The findings were communicated with Dr. Oropeza at 12/23/2024 1:13 PM by messaging.
[2024-12-23] MEDS ORDERED: TENECTEPLASE 50 MG/10 ML VIAL IV ONE (13:35)
[2024-12-23 13:48] LABS: Absolute Lymphocytes (CBC) 2.0 K/uL (0.7-4.9); Hematocrit 41.8 % (39.6-49.0); Hemoglobin 14.2 g/dL (13.6-17.9); MCH 31.4 pg (27.0-35.0); MCHC 34.0 g/dL (32.0-36.0); MCV 92.4 fL (80-100); MPV 9.1 fL (7.6-11.3); Nucleated RBC Absolute Count 0.0 (0-0); Nucleated Red Blood Cells % 0.1 % (0-0); RBC Red Blood Cell Count 4.52 M/uL (4.33-5.43); White Blood Count 6.80 thou/uL (4.3-10.9)
--- NOTE | 2024-12-23 13:52 | RAD REPORT ---
EXAMINATION: ONE VIEW CHEST XR CLINICAL INDICATION: stroke TECHNIQUE: Frontal chest projection is submitted. Examination is limited by patient positioning and t echnique. COMPARISON: 01/06/2024 FINDINGS: The lungs are well inflated and clear. The heart is upper limit of normal in size. No displaced fract ures identified. IMPRESSION: No acute intrathoracic abnormalities.
--- NOTE | 2024-12-23 13:52 | RAD REPORT ---
EXAMINATION: CTA HEAD CLINICAL INDICATION: NUMBNESS TECHNIQUE: Axial CT images were obtained through the head after intravenous contrast utilizing angiog raphic protocol with 3D post-processing (maximum intensity projection images, volume rendered images and/or shaded surface rendered images). One or more of the following dose reduction technique s were used: Automated exposure control, adjustment of the mA and/or kV according to patient size, and/or iterative reconstruction. Unless otherwise specified, incidental findings do not require dedic ated imaging follow-up. COMPARISON: No prior exam. FINDINGS: ICA: The petrous, cavernous, and supraclinoid segments of the bilateral internal carotid arteries are normal. The ophthalmic artery origins are visualized and normal. The posterior communicating arteries are patent. JOSH: Anterior cerebral arteries are normal bilaterally. The anterior communicating artery is patent. MCA: Middle cerebral arteries are normal bilaterally. OIL CHANGE TECHNICIAN: Posterior cerebral arteries are normal bilaterally. Vertebrobasilar: The vertebral arteries are patent. The basilar artery is normal in appearance. 3D images confirm these findings. IMPRESSION: No significant flow abnormality is identified.
[2024-12-23 13:57] LABS: PT Prothrombin Time 10.2 SECONDS (10-13.0); PTT, Activated Partial Thromb 31.3 SECONDS (27.2-37.4); Protime INR 0.9
--- NOTE | 2024-12-23 14:01 | RAD REPORT ---
EXAMINATION: CTA NECK CLINICAL INDICATION: NUMBNESS TECHNIQUE: Axial CT images were obtained from the aortic arch to the skull base after intravenous con trast utilizing angiographic protocol with 3D post-processing (maximum intensity projection images, volume rendered images and/or shaded surface rendered images). One or more of the following dose redu ction techniques were used: Automated exposure control, adjustment of the mA and/or kV according to patient size, and/or iterative reconstruction. Unless otherwise specified, incidental findings do not require dedicated imaging follow-up. COMPARISON: No prior exam. FINDINGS: AORTA: The imaged aortic arch is normal. CCA: The common carotid arteries are patent and normal in caliber. ICA/ECA: Bilateral internal and external carotid arteries are patent. There is no significant interna l carotid artery stenosis. VERTEBRAL: The cervical vertebral arteries are patent. The vertebral arteries are codominant. SOFT TISSUE: No significant neck soft tissue abnormalities. The visualized lung apices are clear. 3D images confirm these findings. IMPRESSION: No significant flow abnormality of the neck vessels is identified. NASCET criteria used. Mild 0-49% stenosis Moderate 50-69% stenosis Severe 70-99% stenosis
[2024-12-23 14:13] LABS: ALT/SGPT 89.0 U/L (16-61); AST/SGOT 40.0 U/L (15-37); Albumin 3.4 g/dL (3.4-5.0); Albumin/Globulin Ratio 1.2 (1.1-1.8); Alkaline Phosphatase 93.0 U/L (45-117); Anion Gap 7.5 mEq/L (5.0-15.0); BUN Blood Urea Nitrogen 22.0 mg/dL (7-18); Bilirubin Indirect, Calculated 0.4 mg/dL (0.2-0.8); Globulin 2.9 g/dL (2.3-3.5); Glucose Level 96.0 mg/dL (74-106); Magnesium 2.1 mg/dL (1.6-2.4); Potassium 4.5 mEq/L (3.5-5.1); Troponin High Sensitivity 9.6 pg/mL (<58.9)
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
[2024-12-23] MEDS ORDERED: LORazepam 2 MG/ML VIAL ONE (14:47)
[2024-12-23 14:48] LABS: METHAMPHETAM NEGATIVE (NEGATIVE); THC Cannibis NEGATIVE (NEGATIVE)
--- NOTE | 2024-12-23 15:37 | RAD REPORT ---
EXAMINATION: MRI BRAIN WITHOUT CONTRAST CLINICAL INDICATION: STROKE ALERT TECHNIQUE: Multiplanar multisequence MR images of the brain were obtained without intravenous contras t. Unless otherwise specified, incidental findings do not require dedicated imaging follow-up. COMPARISON: CT head 12/23/2024 FINDINGS: INTRACRANIAL: Diffusion-weighted images show no acute or early subacute infarction. There is mild bra in atrophy with mildT2/FLAIR hyperintensities in the periventricular and deep white matter regions, likely representing chronic microvascular ischemic changes. There is no mass effect or midline shift. No abnormal extraaxial fluid collection. VASCULATURE: Normal signal voids in the larger intracranial arteries and dural venous sinuses. SINUSES: The paranasal sinuses and mastoid air cells are predominantly clear. BONE: The marrow signal pattern is within normal limits. IMPRESSION: Negative for acutre CVA or other acute intracranial finding.
[2024-12-23] MEDS ORDERED: ONDANSETRON 4 MG/2 ML VIAL IV PRN (16:02)
[2024-12-23] MEDS ORDERED: NICOTINE 21 MG/PAT TD ONE (16:15)
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
[2024-12-23 17:27] VITALS: BMI 30.5
[2024-12-23] MEDS ORDERED: HYDRALAZINE HCL 20 MG/ML VIAL IV PRN (17:56)
[2024-12-23] MEDS: ATORVASTATIN 40 MG TAB PO SCH (20:49)
[2024-12-23] MEDS ORDERED: LORAZEPAM 1 MG TABLET PO SCH (21:00)
[2024-12-23] MEDS: LORAZEPAM 1 MG TABLET PO SCH (21:06)
[2024-12-23] MEDS ORDERED: LORAZEPAM 0.5 MG TABLET PO PRN (21:09)
[2024-12-24 03:59] VITALS: O2SAT 97
[2024-12-24 06:18] LABS: Absolute Lymphocytes (CBC) 2.0 K/uL (0.7-4.9); Hematocrit 40.3 % (39.6-49.0); Hemoglobin 14.1 g/dL (13.6-17.9); MCH 31.9 pg (27.0-35.0); MCHC 35.0 g/dL (32.0-36.0); MCV 91.2 fL (80-100); MPV 9.0 fL (7.6-11.3); Nucleated RBC Absolute Count 0.0 (0-0); Nucleated Red Blood Cells % 0.1 % (0-0); RBC Red Blood Cell Count 4.42 M/uL (4.33-5.43); White Blood Count 7.20 thou/uL (4.3-10.9)
[2024-12-24 06:34] LABS: ALT/SGPT 78.0 U/L (16-61); AST/SGOT 38.0 U/L (15-37); Albumin 3.2 g/dL (3.4-5.0); Albumin/Globulin Ratio 1.3 (1.1-1.8); Alkaline Phosphatase 93.0 U/L (45-117); Anion Gap 8.8 mEq/L (5.0-15.0); BUN Blood Urea Nitrogen 20.0 mg/dL (7-18); Globulin 2.5 g/dL (2.3-3.5); Glucose Level 119.0 mg/dL (74-106); HDL Cholesterol 92.0 mg/dL (40-60); LDL Cholesterol, Calculated 65.0 mg/dL (<130); LDL Cholesterol,Calc NonReport 65.0; Potassium 3.8 mEq/L (3.5-5.1)
[2024-12-24] MEDS: POTASSIUM 25 MEQ EFFERV TAB PO ONE (08:51)
[2024-12-24 13:28] VITALS: BP 111/58; TEMP 97.8
[2024-12-24] MEDS: ACETAMINOPHEN 500 MG TAB PO ONE (13:44)
--- NOTE | 2024-12-24 13:46 | RAD REPORT ---
EXAM: CT brain without contrast HISTORY: S/P TNK, r/o bleed COMPARISON: 12/23/2024 TECHNIQUE: Multiple contiguous axial images were obtained and a CT of the brain without contrast. Sag ittal and coronal reformats were performed. One or more of the following dose reduction techniques were used: Automated exposure control, adjust ment of the mA and/or kV according to patient size, and/or iterative reconstruction. FINDINGS: No evidence of hydrocephalus, intracranial hemorrhage, or extra-axial fluid collection. The brain is normal in morphology. No evidence of midline shift or areas of brain edema. The calvarium is intact. The visualized paranasal sinuses and mastoid air cells are essentially clear . IMPRESSION: No evidence of acute intracranial abnormality.
--- NOTE | 2024-12-24 15:37 | P.DS ---
Admission Date: 12/23/24 Discharge Date: 12/24/24 Disposition: ROUTINE DISCHARGE Discharge Condition: GOOD Reason for Admission: TIA/CVA Brief History of Present Illness: 54-year-old male with history of hypertension, JULIA, tobacco use disorder, cocaine abuse, reported history of recent CVA presents emergency department chief complaint of left-sided paresthesia. Reports that 2 weeks ago he was at [facility] and diagnosed with an ischemic CVA, here at outside the window did not receive TNK at that time. He was started on aspirin, Plavix, statin, he is unclear about which medications he was compliant with, he states that his prescriptions were sent to the pharmacy in [place] he has been unable to pick them up he did tell the ER he had been taking Plavix. Patient was evaluated in the ER, given his ongoing paresthesias and arrived within the window without significant contraindication he was given TNK in the emergency department. CT head without contrast was negative for acute findings, CTA of the head and neck were negative for LVO, MRI of the brain was subsequently completed and did not show any acute abnormality or CVA. Patient's symptoms are rapidly improving, near resolved and some mild left upper extremity distal paresthesia but otherwise neurologically. His left eyelid does appear to be drooping slightly. Patient will be admitted to the ICU for close monitoring status post TNK. He does report [facility] they did an echocardiogram as well. Hospital Course: Assessment: Left-sided paresthesias TIA versus CVA status post TNK History of recent ischemic CVA History of hypertension History of JULIA Tobacco use disorder Cocaine abuse Patient was admitted to the hospital for left-sided paresthesias. He had previously been seen at [facility] about 2 weeks earlier and was told he had a stroke at that time. Patient had CT of the head without contrast which was negative CT angio of the head and neck which were both negative for LVO, MRI of the brain without contrast was performed which did not show any acute or subacute CVA. He arrived within the window for TNK and did receive TNK in the emergency department. His symptoms improved during his stay in the ER and almost completely resolved with some minimal paresthesias of the left upper extremity remaining through the evening. Patient was observed in the hospital/ICU overnight, repeat CT head was performed today 24 hours after the TNK which was negative for acute findings, did not demonstrate any hemorrhage. He reports he does have a prescription for aspirin and Plavix at home which will he will resume tomorrow, he was given a prescription for the atorvastatin. Patient did test positive for cocaine and admits to cocaine use as well as tobacco use. He was counseled extensively that he needs to completely cease all use of cocaine and tobacco as it increases risk for stroke and other serious health conditions. Patient should follow-up with neurology in 1 to 2 weeks Follow-up with your primary care doctor 1 to 2 weeks Stop smoking, do not use cocaine at all, ever. Vital Signs/Physical Exam: Temp Pulse Resp BP Pulse Ox 97.8 F 65 14 111/58 L 98 12/24/24 12:00 12/24/24 14:00 12/24/24 14:00 12/24/24 13:00 12/24/24 14:00 General: Alert, In no apparent distress, Oriented x3 HEENT: Atraumatic, PERRLA Neck: Supple, JVD not distended Respiratory: Clear to auscultation bilaterally, Normal air movement Cardiovascular: Regular rate/rhythm, Normal S1 S2 Gastrointestinal: Normal bowel sounds, No tenderness Musculoskeletal: No tenderness Integumentary: No rashes Neurological: Normal speech, Normal tone, Normal affect Laboratory Data at Discharge: WBC 7.20 thou/uL (4.3-10.9) 12/24/24 05:21 Hgb 14.1 g/dL (13.6-17.9) 12/24/24 05:21 Hct 40.3 % (39.6-49.0) 12/24/24 05:21 Plt Count 201 thou/uL (152-406) 12/24/24 05:21 PT 10.2 SECONDS (10-13.0) 12/23/24 13:22 INR 0.90 12/23/24 13:22 APTT 31.3 SECONDS (27.2-37.4) 12/23/24 13:22 Sodium 138 mEq/L (136-145) D 12/24/24 05:21 Potassium 3.8 mEq/L (3.5-5.1) D 12/24/24 05:21 BUN 20 mg/dL (7-18) H 12/24/24 05:21 Creatinine 0.87 mg/dL (0.70-1.30) 12/24/24 05:21 Glucose 119 mg/dL (74-106) H 12/24/24 05:21 Magnesium 2.1 mg/dL (1.6-2.4) 12/23/24 13:22 Total Bilirubin 0.5 mg/dL (0.2-1.0) 12/24/24 05:21 AST 38 U/L (15-37) H 12/24/24 05:21 ALT 78 U/L (16-61) H 12/24/24 05:21 Alkaline Phosphatase 93 U/L (45-117) 12/24/24 05:21 Triglycerides 73 mg/dL (<150) 12/24/24 05:21 Cholesterol 172 mg/dL (<200) 12/24/24 05:21 HDL Cholesterol 92 mg/dL (40-60) H 12/24/24 05:21 Cholesterol/HDL Ratio 1.87 12/24/24 05:21 Home Medications: Aspirin 81 mg PO DAILY 12/23/24 Clopidogrel Bisulfate [Plavix] 75 mg PO DAILY 12/23/24 Atorvastatin Calcium [Lipitor] 40 mg PO BEDTIME #30 tab 12/24/24 New Medications: Atorvastatin Calcium [Lipitor] 40 mg PO BEDTIME #30 tab Physician Discharge Instructions: PROBLEM: Stroke GOAL: Clear understanding of disease process INSTRUCTIONS: follow up with PCP and neurology Diet: Heart Healthy Activity: Ad jennifer DME DME: Date Ordered: Name of Company: [employer] Services Needed: Name of Company: Date or Referral: IMMUNIZATION Influenza Vaccine Indicated: Influenza Vaccine Given: Date Given: Pneumonia Vaccine Indicated: No Pneumonia Vaccine Given: Date Given: Patient was admitted to the hospital for left-sided paresthesias. He had previously been seen at [facility] about 2 weeks earlier and was told he had a stroke at that time. Patient had CT of the head without contrast which was negative CT angio of the head and neck which were both negative for LVO, MRI of the brain without contrast was performed which did not show any acute or subacute CVA. He arrived within the window for TNK and did receive TNK in the emergency department. His symptoms improved during his stay in the ER and almost completely resolved with some minimal paresthesias of the left upper extremity remaining through the evening. Patient was observed in the hospital/ICU overnight, repeat CT head was performed today 24 hours after the TNK which was negative for acute findings, did not demonstrate any hemorrhage. He reports he does have a prescription for aspirin and Plavix at home which will he will resume tomorrow, he was given a prescription for the atorvastatin. Patient did test positive for cocaine and admits to cocaine use as well as tobacco use. He was counseled extensively that he needs to completely cease all use of cocaine and tobacco as it increases risk for stroke and other serious health conditions. Patient should follow-up with neurology in 1 to 2 weeks Follow-up with your primary care doctor 1 to 2 weeks Stop smoking, do not use cocaine at all, ever. Diet: AHA Activity: Ad jennifer Followup: Blake Morgan MD [ASSOCIATE-ACTIVE - CAN ADMIT] - 1-2 Weeks Nuno Honeycutt MD [Primary Care Provider] - Time spent managing pt's care (in minutes): 42
== END 2024-12-24 15:00 | disposition home or self-care (01) | DRG 61 ==
LOC: ER 12:21 → ERHOLD 16:02 → 3RD-ICU 16:53
PROVIDERS: ADMIT Hospitalist; ATTEND Hospitalist
DX: G45.9 Transient cerebral ischemic attack, unspecified (principal); I63.9 Cerebral infarction, unspecified; R20.2 Paresthesia of skin; Z86.73 Personal history of transient ischemic attack (TIA), and cerebral infarction without residual deficits; I10 Essential (primary) hypertension; G47.33 Obstructive sleep apnea (adult) (pediatric); Z72.0 Tobacco use; F14.10 Cocaine abuse, uncomplicated; Z90.49 Acquired absence of other specified parts of digestive tract; R29.701 NIHSS score 1
CPT/HCPCS: 36415; 70450; 70496; 70498; 70551; 71045; 80048; 80053; 80061; 80076; 80307; 82565; 82947; 83735; 84484; 85025; 85610; 85730; 92977; 93005; 96365; 96366; 96375; 99291; J3101; Q9967